=== PATIENT | female | born 1965 | race Caucasian/White ===

== ENCOUNTER → 2019-06-03 15:53 | Outpatient (BNVA) | payer MEDICAID, SELFPAY | PROVIDERS: Family Provider Nurse Practitioner; PCP Nurse Practitioner; Visit Provider Nurse Practitioner | DX: E11.9 Type 2 diabetes mellitus without complications (principal); E03.8 Other specified hypothyroidism; R82.998 Other abnormal findings in urine | CPT/HCPCS: 80053; 80061; 81000; 83036; 84443; 87077; 87086; 87186 ==

== ENCOUNTER → 2019-07-21 08:09 | Outpatient (BNVA) | payer MEDICAID, SELFPAY | PROVIDERS: Family Provider Nurse Practitioner; PCP Nurse Practitioner; Visit Provider Psychiatry & Neurology Psychiatry | DX: F31.9 Bipolar disorder, unspecified (principal) | CPT/HCPCS: 99214 ==

== ENCOUNTER → 2019-09-07 12:35 | Outpatient (BNVA) | payer MEDICAID, SELFPAY | PROVIDERS: Family Provider Nurse Practitioner; PCP Nurse Practitioner; Visit Provider Nurse Practitioner | DX: E03.8 Other specified hypothyroidism (principal); E11.21 Type 2 diabetes mellitus with diabetic nephropathy; M79.7 Fibromyalgia; E66.01 Morbid (severe) obesity due to excess calories; I25.10 Atherosclerotic heart disease of native coronary artery without angina pectoris; J30.1 Allergic rhinitis due to pollen; E78.5 Hyperlipidemia, unspecified; N18.3 Chronic kidney disease, stage 3 (moderate) | CPT/HCPCS: 80069; 82306; 82310; 82570; 83036; 83970; 84156; 85025 ==

== ENCOUNTER 2019-11-14 21:30 | Emergency (ER) | payer MEDICAID, SELFPAY ==
[2019-11-14 21:36] VITALS: BP 142/83; PULSE 80; RESP 18; TEMP 36.2; O2SAT 96; BMI 48.0
--- NOTE | 2019-11-14 22:22 | W.ED.GENADLT ---
HPI - General Adult General: Chief complaint: General Medical Stated complaint: sinus issue Time Seen by Provider: 11/14/19 22:19 History of Present Illness: HPI narrative: Patient complains about sinus pain that started yesterday would like some antibiotics has history of sinusitis. MD complaint: Sinus pain Onset (ago): day(s) Severity scale (1-10): 2 Quality: aching Pain Consistency: constant Associated symptoms: Deny chest pain, dyspnea, headache(s), nausea, rash or vomiting Review of Systems Const: Denies: fever(s), chills or body aches Eyes: Denies: change in vision or blurry vision ENMT: Reports: other (Sinus pain right maxillary area x1 day); Denies: throat pain or nasal congestion Card: Denies: chest pain or dyspnea on exertion Resp: Denies: dyspnea, productive cough or non-productive cough GI: Denies: abdominal pain, nausea or vomiting Musc: Denies: extremity pain Skin/Breast: Denies: rash Neuro: Denies: headache(s) Psych: Denies: anxiety or depression Reji/Lymph: Denies: easy bruising PFSH ED PFSH: Medical History (Updated 11/14/19 @ 22:22 by BELLA Denson) Adult onset hypothyroidism Allergic rhinitis due to pollen ASHD (arteriosclerotic heart disease) Bipolar 1 disorder Bipolar disorder Borderline personality disorder Chronic anxiety Controlled diabetes mellitus with hyperglycemia, with long-term current use of insulin Diabetes Fibromyalgia GERD (gastroesophageal reflux disease) History of abnormal cervical Pap smear (~2010) History of mammogram (~2015) Hyperlipidemia Morbid obesity Narcissistic personality disorder Post-traumatic stress disorder, chronic PTSD (post-traumatic stress disorder) Surgical History History of colon polyps History of colonoscopy (~10/2018) History of esophagogastroduodenoscopy (EGD) (~10/2018) History of tubal ligation (~2002) Family History Mother Hypertension Other Cancer Denies family history of Anesthesia complication Bleeding disorder Social History Smoking and tobacco status: former smoker Quit status (tobacco): has quit using tobacco Year quit tobacco: 2018 Second hand smoke exposure: No Smoking risk assessment/counseling performed?: No Alcohol intake: never Desire information about alcohol rehabilitation?: No Counseling given: No Desire information about substance/drug rehabilitation?: No Counseling given: No Adopted: No Caregiver/support person: Yes Lives independently: Yes Household members: family Housing: House Marital status: / Highest education level completed: High School Graduate service: No Current occupational status: disabled Current occupational exposures/hazards: No Pets and animals: Yes History of recent travel: No Sexually active: No Current gender identity: Female Padmini/[employer]ist: [employer] Special padmini needs: No Agree to transfusion: Yes Financial difficulty paying for basics: Decline to Answer Physical Exam Const: COMMON NORMALS: no acute distress, average body habitus and patient oriented x3 HENMT: COMMON NORMALS: normocephalic HEAD & SCALP: normal to inspection and normocephalic FACE & SINUS: other (Tenderness right maxillary frontal and ethmoid sinus area no swelling noted) Eye: COMMON NORMALS: conjunctivae normal GENERAL EYE: appearance normal, both eyes and all related structures CONJUNCTIVA: Yes conjunctivae normal Neck/C-Spine: COMMON NORMALS: no JVD Chest: COMMONS NORMALS: normal inspection of the chest Resp: COMMON NORMALS: normal respiratory effort and clear to auscultation bilaterally AUSCULTATION: clear to auscultation bilaterally Cardio: COMMON NORMALS: no JVD, regular rate and regular rhythm RATE: regular rate RHYTHM: regular rhythm GI: COMMON NORMALS: Normal to inspection, nondistended, normoactive bowel sounds present Extremity: COMMON NORMALS: normal to inspection and full ROM Neuro: COMMON NORMALS: patient oriented x3 Course Vital Signs: Vital signs: Vital Signs Temperature 97.2 F L 11/14/19 21:36 Pulse Rate 80 11/14/19 21:36 Respiratory Rate 18 11/14/19 21:36 Blood Pressure 142/83 11/14/19 21:36 Pulse Oximetry 96 11/14/19 21:36 Discharge Plan Discharge Patient Disposition: Home Clinical Impression: Sinus complaint Condition: Stable Prescriptions: New Cipro 500 mg tablet 500 mg PO BID Qty: 14 RF: 0 No Action amitriptyline 50 mg tablet 50 mg PO .qhs Qty: 30 RF: 5 duloxetine [Cymbalta] 60 mg capsule,delayed release(DR/EC) 120 mg PO DAILY Qty: 60 RF: 5 lithium carbonate 450 mg tablet extended release 450 mg PO .qhs Qty: 30 RF: 5 lithium carbonate 300 mg tablet extended release 300 mg PO .qhs Qty: 30 RF: 5 cholecalciferol (vitamin D3) 1,250 mcg (50,000 unit) capsule 50,000 unit PO .Monthly Qty: 1 RF: 1 folic acid 1 mg tablet 1 mg PO DAILY Qty: 30 RF: 2 furosemide [Lasix] 20 mg tablet 20 mg PO .every other day Qty: 30 RF: 2 glipizide 5 mg tablet extended release 24hr 5 mg PO DAILY Qty: 30 RF: 2 Toujeo Max U-300 SoloStar 300 unit/mL (3 mL) insulin pen 85 unit SUBCUT DAILY Qty: 6 RF: 2 levothyroxine [Synthroid] 50 mcg tablet 50 mcg PO DAILY Qty: 30 RF: 2 magnesium oxide 400 mg (241.3 mg magnesium) tablet 400 mg PO BID Qty: 60 RF: 2 montelukast [Singulair] 10 mg tablet 10 mg PO DAILY Qty: 30 RF: 2 rosuvastatin [Crestor] 10 mg tablet 10 mg PO DAILY Qty: 30 RF: 2 tizanidine 4 mg tablet 4 mg PO TID PRN (Reason: muscle spasticity) Qty: 90 RF: 2 tramadol 50 mg tablet 50 mg PO Q6H PRN (Reason: pain) Qty: 120 RF: 2 nystatin 100,000 unit/gram cream 1 applic TOPICAL BID PRNRF: 0 nitroglycerin [Nitrostat] 0.4 mg tablet, sublingual 0.4 mg SUBLINGUAL Q5M PRNRF: 0 albuterol sulfate [Ventolin HFA] 90 mcg/actuation HFA aerosol inhaler 2 puff INHALATION Q6H PRNRF: 0 cholecalciferol (vitamin D3) 10,000 unit capsule 10,000 unit PO ONCE RF: 0 omega-3 fatty acids [Fish Oil Concentrate] 1,000 mg capsule 1,000 mg PO BID RF: 0 aspirin 325 mg tablet 325 mg PO ONCE RF: 0 coenzyme Q10 [Co Q-10] 400 mg capsule 400 mg PO ONCE RF: 0 chromium picolinate 200 mcg tablet 200 mcg PO ONCE RF: 0 calcium citrate 250 mg calcium tablet 250 mg PO ONCE RF: 0 diphenhydramine HCl [Benadryl] 25 mg capsule 25 mg PO ONCE PRNRF: 0 guaifenesin [Mucinex] 600 mg tablet extended release 12hr 600 mg PO BID RF: 0 lysine [L-Lysine] 500 mg tablet 500 mg PO ONCE PRNRF: 0 alprazolam [Xanax] 0.25 mg tablet 0.25 mg PO QID Qty: 120 RF: 5 isosorbide mononitrate 120 mg tablet extended release 24 hr 120 mg PO QAM 90 Days Qty: 90 RF: 3 propranolol 60 mg tablet 30 mg PO BID 90 Days Qty: 90 RF: 3 potassium chloride 10 mEq capsule, extended release 10 meq PO .every other day Qty: 30 RF: 2 Victoza 2-Tree 0.6 mg/0.1 mL (18 mg/3 mL) pen injector 1.8 mg SUBCUT Q24H Qty: 6 RF: 0 (DME) pen needle, diabetic 33 gauge x 5/32 needle See Rx Instructions .ROUTE .MEDSUPPLY Qty: 100 RF: 5 Discharge Orders: Discharge Order (Routine); Ordered 11/14/19 Ordered By: Claus Mendez Referrals: Jamin Egan, PROFESSOR [facility] [employer] [Primary Care Provider] - Discharge Diet: Usual diet Discharge Activity: Resume usual activity Patient Instructions: Sinusitis (ED) Activity Restrictions/Additional Instructions: Follow-up with medical provider as directed. Take medications as prescribed. Return to the ER or your medical provider if condition worsens. Please read and understand discharge instructions. If any questions ask please. Coding Level of Care Code ED [employer] Exam Comprehensive
[2019-11-14] MEDS: ciprofloxacin 500 mg Tablet PO (22:33)
[2019-11-14 22:34] VITALS: PULSE 80; RESP 18; O2SAT 99
== END 2019-11-14 22:36 | disposition home or self-care (01) ==
PROVIDERS: Emergency Provider Nurse Practitioner Family; PCP Nurse Practitioner
DX: J32.9 Chronic sinusitis, unspecified (principal); Z79.84 Long term (current) use of oral hypoglycemic drugs; Z79.82 Long term (current) use of aspirin; E11.9 Type 2 diabetes mellitus without complications; E78.5 Hyperlipidemia, unspecified; Z87.891 Personal history of nicotine dependence
CPT/HCPCS: 12345; 99282

== ENCOUNTER → 2019-12-07 14:42 | Outpatient (BNVA) | payer MEDICAID, SELFPAY | PROVIDERS: Family Provider Nurse Practitioner; PCP Nurse Practitioner; Visit Provider Nurse Practitioner | DX: E11.65 Type 2 diabetes mellitus with hyperglycemia (principal); Z79.4 Long term (current) use of insulin; E03.8 Other specified hypothyroidism; F31.9 Bipolar disorder, unspecified; E55.9 Vitamin D deficiency, unspecified | CPT/HCPCS: 80053; 80178; 82306; 83036; 84443 ==

== ENCOUNTER → 2020-03-07 14:12 | Outpatient (BNVA) | payer MEDICAID, SELFPAY ==
[2019-12-22 11:14] VITALS: BP 132/88; BMI 50.8
== END ==
PROVIDERS: Family Provider Nurse Practitioner; PCP Nurse Practitioner; Visit Provider Nurse Practitioner
DX: I25.10 Atherosclerotic heart disease of native coronary artery without angina pectoris (principal); E11.65 Type 2 diabetes mellitus with hyperglycemia; Z79.4 Long term (current) use of insulin; M79.7 Fibromyalgia; E66.01 Morbid (severe) obesity due to excess calories; E03.8 Other specified hypothyroidism; J30.1 Allergic rhinitis due to pollen; B37.9 Candidiasis, unspecified; E78.5 Hyperlipidemia, unspecified; E55.9 Vitamin D deficiency, unspecified
CPT/HCPCS: 80053; 80061; 82306; 83036

== ENCOUNTER → 2020-06-05 14:26 | Outpatient (BNVA) | payer MEDICAID, SELFPAY ==
[2019-12-22 11:14] VITALS: BP 132/88; BMI 50.8
== END ==
PROVIDERS: Family Provider Nurse Practitioner; PCP Nurse Practitioner; Visit Provider Nurse Practitioner
DX: E11.65 Type 2 diabetes mellitus with hyperglycemia (principal); Z79.4 Long term (current) use of insulin; E03.8 Other specified hypothyroidism; E55.9 Vitamin D deficiency, unspecified; E78.49 Other hyperlipidemia; E78.5 Hyperlipidemia, unspecified; M79.7 Fibromyalgia; E66.01 Morbid (severe) obesity due to excess calories; I25.10 Atherosclerotic heart disease of native coronary artery without angina pectoris; J30.1 Allergic rhinitis due to pollen; B37.9 Candidiasis, unspecified
CPT/HCPCS: 80053; 81003; 82306; 83036; 84443; 87077; 87086; 87184

== ENCOUNTER → 2020-08-03 15:41 | Outpatient (BNVA) | payer MEDICAID, SELFPAY ==
[2020-07-06 14:36] VITALS: BP 132/82; BMI 53.5
== END ==
PROVIDERS: Family Provider Nurse Practitioner; PCP Nurse Practitioner; Visit Provider Nurse Practitioner
DX: E11.65 Type 2 diabetes mellitus with hyperglycemia (principal); R35.0 Frequency of micturition; E66.01 Morbid (severe) obesity due to excess calories; M79.7 Fibromyalgia; Z79.4 Long term (current) use of insulin
CPT/HCPCS: 81003; 87077; 87086; 87184

== ENCOUNTER → 2020-08-15 14:39 | Outpatient (BNVA) | payer MEDICAID, SELFPAY ==
[2020-07-06 14:36] VITALS: BP 132/82; BMI 53.5
== END ==
PROVIDERS: Family Provider Nurse Practitioner; PCP Nurse Practitioner; Visit Provider Nurse Practitioner Psychiatric/Mental Health
DX: F31.9 Bipolar disorder, unspecified (principal); F43.12 Post-traumatic stress disorder, chronic
CPT/HCPCS: 99215

== ENCOUNTER → 2020-09-08 13:56 | Outpatient (BNVA) | payer MEDICAID, SELFPAY ==
[2020-07-06 14:36] VITALS: BP 132/82; BMI 53.5
== END ==
PROVIDERS: Family Provider Nurse Practitioner; PCP Nurse Practitioner; Visit Provider Psychiatry & Neurology Psychiatry
DX: F31.9 Bipolar disorder, unspecified (principal); F43.12 Post-traumatic stress disorder, chronic; W19.XXXA Unspecified fall, initial encounter; Z79.899 Other long term (current) drug therapy; E11.649 Type 2 diabetes mellitus with hypoglycemia without coma
CPT/HCPCS: 99215

== ENCOUNTER → 2020-12-01 12:51 | Outpatient (BNVA) | payer MEDICAID, SELFPAY ==
[2020-07-06 14:36] VITALS: BP 132/82; BMI 53.5
== END ==
PROVIDERS: Family Provider Nurse Practitioner; PCP Nurse Practitioner; Visit Provider Psychiatry & Neurology Psychiatry
DX: F31.9 Bipolar disorder, unspecified (principal); F43.12 Post-traumatic stress disorder, chronic
CPT/HCPCS: 99215

== ENCOUNTER → 2021-01-04 11:40 | Outpatient (BNVA) | payer OTHER, SELFPAY ==
[2020-07-06 14:36] VITALS: BP 132/82; BMI 53.5
== END ==
PROVIDERS: Family Provider Nurse Practitioner; PCP Nurse Practitioner; Visit Provider Psychiatry & Neurology Neurology
DX: F31.9 Bipolar disorder, unspecified (principal)
CPT/HCPCS: 80061; 80178; 83036; 83721

== ENCOUNTER 2021-02-12 18:30 | Emergency (ER) | payer MEDICAID, SELFPAY ==
[2021-01-08 14:46] VITALS: BP 146/97; BMI 51.1
[2021-02-12 18:37] VITALS: BP 127/77; PULSE 76; RESP 20; TEMP 36.9; O2SAT 96; BMI 50.2
--- NOTE | 2021-02-12 19:23 | XRR_ITS ---
PROCEDURE INFORMATION: Exam: XR Chest Exam date and time: 02/12/2021 7:23 PM Age: 55 years old Clinical indication: Shortness of breath; Additional info: Fall TECHNIQUE: Imaging protocol: XR of the chest. Views: 1 view. COMPARISON: CR Abdomen Series Acute 20108 11/29/2015 7:50 AM FINDINGS: Lungs: No consolidation. Pleural spaces: No pleural effusion. No pneumothorax. Heart/Mediastinum: No cardiomegaly. Bones/joints: No acute fracture demonstrated. Mild degenerative spine changes are noted. XR/XR chest 1V portable [id number] IMPRESSION: 1. No acute abnormality demonstrated. 2. There is no interval change from the prior examination. Radiation Dose CTDIVOL = (mGy): DLP = (mGy-cm)
--- NOTE | 2021-02-12 19:23 | CTR_ITS ---
PROCEDURE INFORMATION: Exam: CT Head Without Contrast Exam date and time: 02/12/2021 7:23 PM Age: 55 years old Clinical indication: Walking, difficulty and other: Weakness TECHNIQUE: Imaging protocol: Computed tomography of the head without contrast. Radiation optimization: All CT scans at this facility use at least one of these dose optimization techniques: automated exposure control; mA and/or kV adjustment per patient size (includes targeted exams where dose is matched to clinical indication); or iterative reconstruction. COMPARISON: No relevant prior studies available. RADIATION DOSE METRICS: Total DLP (mGy-cm): 977.33 FINDINGS: Brain: Unremarkable. No hemorrhage. No significant white matter disease. No edema. 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 Cerebral ventricles: No ventriculomegaly. Paranasal sinuses: Postop changes of the bilateral maxillary sinuses. Mild mucoperiosteal thickening in the right maxillary sinus. Mastoid air cells: Unremarkable as visualized. No mastoid effusion. Bones/joints: Unremarkable. No acute fracture. Soft tissues: 10 mm partially calcified right frontal scalp cyst or nodule. Similar 1.8 cm nodule in the right occipital scalp. CT/CT head wo con* [id number] IMPRESSION: No acute intracranial abnormality demonstrated. Radiation Dose CTDIVOL = (mGy): DLP = 977.33 (mGy-cm)
--- NOTE | 2021-02-12 21:20 | W.ED.WEAKNES ---
HPI - Weakness General: Chief complaint: Weakness Stated complaint: Fallen (3) times\Cant feel rt foot or lips Time Seen by Provider: 02/12/21 20:47 Source: patient Mode of arrival: ambulatory Limitations: no limitations History of Present Illness: HPI Narrative: 55-year-old female who states that she has got chronic numbness in her extremities left greater than right states she does have frequent falls but today she has had increased muscle weakness and spasm and falls. States she had 3 falls today states she has had increased tingling in her extremities. She states that time she walks with a cane but states she was not using her cane when she fell. She denies any back pain or headache. States she is also had some slight dyspnea is also chronic in nature. She denies any pain from her falls. Associated symptoms: Denies chest pain, chills, dysuria, easy bruising, fever(s), nausea or vomiting Review of Systems Const: Denies: fever(s), chills, body aches or change in appetite Eyes: Denies: blurry vision or eye discomfort ENMT: Denies: throat pain or dental pain Card: Denies: chest pain Resp: Reports: dyspnea GI: Denies: abdominal pain, nausea, vomiting or diarrhea : Denies: dysuria Musc: Reports: muscle weakness Skin/Breast: Denies: rash Neuro: Reports: numbness in extremities Psych: Denies: depression Reji/Lymph: Denies: easy bruising All/Imm: Denies: urticaria PFSH ED PFSH: Medical History Adult onset hypothyroidism Allergic rhinitis due to pollen ASHD (arteriosclerotic heart disease) Bipolar 1 disorder Bipolar disorder Borderline personality disorder Chronic anxiety Controlled diabetes mellitus with hyperglycemia, with long-term current use of insulin Diabetes Fibromyalgia GERD (gastroesophageal reflux disease) History of abnormal cervical Pap smear (~2010) History of mammogram (~2015) Hyperlipidemia Morbid obesity Narcissistic personality disorder Post-traumatic stress disorder, chronic PTSD (post-traumatic stress disorder) Surgical History History of colon polyps History of colonoscopy (~10/2018) History of esophagogastroduodenoscopy (EGD) (~10/2018) History of tubal ligation (~2002) Family History Mother Hypertension Other Borderline personality disorder Cancer Denies family history of Anesthesia complication Bleeding disorder Social History Smoking and tobacco status: former smoker Quit status (tobacco): has quit using tobacco Year quit tobacco: 2017 Second hand smoke exposure: No Smoking risk assessment/counseling performed?: No Alcohol intake: former Year of sobriety/quit date alcohol: 1990 Desire information about alcohol rehabilitation?: No Counseling given: No Desire information about substance/drug rehabilitation?: No Counseling given: No Adopted: No Caregiver/support person: Yes (Nurse on Wednesdays, aide comes in for 3 hours 4 days a week) Lives independently: Yes Household members: family and none Housing: House Marital status: / Marital status details: in 2010 Number of children: 3 Number of grandchildren: 8 Highest education level completed: Associate Degree: Academic Program Education level details: ADN service: No Current occupational status: disabled Current occupational exposures/hazards: No Pets and animals: Yes Pets & animals: cat(s) History of recent travel: No Leisure activites: music, reading and other Leisure activities details: watch TV, sew, take care of house plants Sexually active: No Current gender identity: Female Padmini/Tenriism: Denominational Special padmini needs: No Agree to transfusion: Yes Financial difficulty paying for basics: Not Very Hard Female Reproductive History: Date of last menstrual period: 01/01/21 Para: 3 Spontaneous abortions: Yes (1) Physical Exam Const: COMMON NORMALS: no acute distress, patient oriented x3 and healthy appearing HENMT: COMMON NORMALS: normocephalic and atraumatic HEAD & SCALP: normocephalic and atraumatic Eye: COMMON NORMALS: Equal, round and reactive pupils present and EOMs intact bilaterally PUPIL: Yes Equal, round and reactive pupils present Neck/C-Spine: COMMON NORMALS: full ROM and supple Chest: COMMONS NORMALS: normal inspection of the chest and normal palpation of entire chest wall Resp: COMMON NORMALS: normal respiratory effort, No retractions, No use of accessory muscles and clear to auscultation bilaterally AUSCULTATION: clear to auscultation bilaterally Cardio: COMMON NORMALS: regular rate, regular rhythm and No murmurs present (Cardio) RATE: regular rate RHYTHM: regular rhythm GI: COMMON NORMALS: Normal to inspection, nondistended, normoactive bowel sounds present, Soft to palpation, non-tender and no masses PALPATION: Yes Soft to palpation Extremity: COMMON NORMALS: normal to inspection and full ROM Neuro: COMMON NORMALS: patient oriented x3, moves all extremities and no focal motor deficits Psych: COMMON NORMALS: mental status grossly normal, Normal thought process present and cooperative THOUGHT PROCESS: Normal thought process present Skin: COMMON NORMALS: no rashes or lesions noted and no wounds GENERAL SKIN EXAM: no rashes or lesions noted Course Vital Signs: Vital signs: Vital Signs Temperature 98.5 F 02/12/21 18:37 Pulse Rate 80 02/13/21 00:44 Respiratory Rate 23 H 02/13/21 00:44 Blood Pressure 130/74 02/13/21 00:44 Pulse Oximetry 95 02/13/21 00:44 MDM - Weakness MDM Narrative: Medical decision making narrative: Patient presents here with weakness and multiple falls but is chronic in nature she uses a cane at times and informed her she is probably should use a cane or walker at all times she does have a urinary tract infection other work-up is all normal she is able ambulate here and is stable for discharge she is to follow-up PCP and return if worsening. Lab Data: Labs: Lab Results 02/12/21 02/12/21 02/12/21 21:23 21:30 22:50 WBC 9.8 10^3/uL 10^3/ uL (4.0-10.0) RBC 4.58 10^6/uL 10^6 /uL (4.1-5.3) Hgb 13.9 g/dL g/dL (11.5-15.3) Hct 41.0 % % (37.0-47.0) MCV 89.5 fl fl (81-99) MCH 30.3 pg pg (28.0-34.0) MCHC 33.9 g/dL g/dL (30.0-36.0) RDW 12.8 % % (12.1-15.1) Plt Count 215 10^3/cmm 10^3 /cmm (130-400) MPV 10.2 fL fL (7.4-10.4) Neut % (Auto) 76.0 % % Lymph % (Auto) 13.8 % % [place] % (Auto) 6.8 % % Eos % (Auto) 2.5 % % Baso % (Auto) 0.6 % % Neut # (Auto) 7.45 10^3/uL 10^3 /uL (1.8-7.7) Lymph # (Auto) 1.4 10^3/uL 10^3/ uL (0.8-4.8) [place] # (Auto) 0.7 10^3/uL 10^3/ uL (0.2-0.9) Eos # (Auto) 0.3 10^3/uL 10^3/ uL (0.0-0.8) Baso # (Auto) 0.1 10^3/uL 10^3/ uL (0.0-0.1) Nucleated RBC % (a uto) 0 % % Nucleated RBCs # 0.0 /100WBC /100W BC PT INR Sodium Potassium Chloride Carbon Dioxide Anion Gap BUN Creatinine GFR Calculation Glucose POC Glucose 359 mg/dL H mg/dL (70-110) Calculated Osmolal ity Calcium Total Bilirubin AST ALT Alkaline Phosphata se Troponin T Baselin e Troponin T 120 Min [place] Troponin T Total Protein Albumin Globulin Urine Color Yellow (Yellow) Urine Appearance Cloudy (CLEAR) Urine pH 5 (5-7) Ur Specific Gravit y 1.005 (1.005-1.030) Urine Protein Neg (Negative) Urine Glucose (UA) 4+ H (Normal) Urine Ketones Negative (Negative) Urine Blood 2+ H (Negative) Urine Nitrate Negative (Negative) Urine Bilirubin Neg (Negative) Urine Urobilinogen Norm mg/dL mg/dL (Negative) Ur Leukocyte Shelley ase 2+ H (Negative) Urine RBC 5-10 /hpf H /hpf (0-2) Urine WBC Too numerous to c nt /hpf H /hpf (0-5) Ur Squamous Epith Cells 5-10 /hpf H /hpf (0-5) Amorphous Sediment Not Reportable Urine Bacteria 3+ /hpf H /hpf (NONE) 02/12/21 02/12/21 02/12/21 22:50 22:50 22:50 WBC RBC Hgb Hct MCV MCH MCHC RDW Plt Count MPV Neut % (Auto) Lymph % (Auto) [place] % (Auto) Eos % (Auto) Baso % (Auto) Neut # (Auto) Lymph # (Auto) [place] # (Auto) Eos # (Auto) Baso # (Auto) Nucleated RBC % (a uto) Nucleated RBCs # PT 14.30 SECONDS SEC ONDS (12.1-14.9) INR 1.07 (0.8-1.2) Sodium 129 mmol/L L mmol /L (136-145) Potassium 4.2 mmol/L mmol/L (3.5-5.1) Chloride 94 mmol/L L mmol/ L (98-107) Carbon Dioxide 23 mmol/L mmol/L (22-29) Anion Gap 16.2 (5-19) BUN 16 mg/dL mg/dL (6-20) Creatinine 1.6 mg/dL H mg/dL (0.5-0.9) GFR Calculation 33.6 mL/min L mL/ min (90-130) Glucose 325 mg/dL H mg/dL (65-115) POC Glucose Calculated Osmolal ity 282 mOsm/kg L mOs m/kg (285-295) Calcium 8.7 mg/dL mg/dL (8.5-10.5) Total Bilirubin 0.5 mg/dL mg/dL (0.15-1.2) AST 15 U/L U/L (0-32) ALT 22 U/L U/L (0-33) Alkaline Phosphata se 83 IU/L IU/L (35-105) Troponin T Baselin e 26 ng/L H ng/L (0-10) Troponin T 120 Min [place] Troponin T Total Protein 6.8 g/dL g/dL (6.6-8.7) Albumin 3.3 g/dL L g/dL (3.5-5.2) Globulin 3.5 g/dL g/dL (1.3-4.6) Urine Color Urine Appearance Urine pH Ur Specific Gravit y Urine Protein Urine Glucose (UA) Urine Ketones Urine Blood Urine Nitrate Urine Bilirubin Urine Urobilinogen Ur Leukocyte Shelley ase Urine RBC Urine WBC Ur Squamous Epith Cells Amorphous Sediment Urine Bacteria 02/13/21 02/13/21 01:00 02:13 WBC RBC Hgb Hct MCV MCH MCHC RDW Plt Count MPV Neut % (Auto) Lymph % (Auto) [place] % (Auto) Eos % (Auto) Baso % (Auto) Neut # (Auto) Lymph # (Auto) [place] # (Auto) Eos # (Auto) Baso # (Auto) Nucleated RBC % (a uto) Nucleated RBCs # PT INR Sodium Potassium Chloride Carbon Dioxide Anion Gap BUN Creatinine GFR Calculation Glucose POC Glucose 244 mg/dL H mg/dL (70-110) Calculated Osmolal ity Calcium Total Bilirubin AST ALT Alkaline Phosphata se Troponin T Baselin e Troponin T 120 Min [place] 26.29 ng/L H ng/L (0-10) Delta Troponin T 0.29 ABS# ABS# (0-10) Total Protein Albumin Globulin Urine Color Urine Appearance Urine pH Ur Specific Gravit y Urine Protein Urine Glucose (UA) Urine Ketones Urine Blood Urine Nitrate Urine Bilirubin Urine Urobilinogen Ur Leukocyte Shelley ase Urine RBC Urine WBC Ur Squamous Epith Cells Amorphous Sediment Urine Bacteria Imaging Data^: CT Head: Attestation: I personally reviewed and interpreted this imaging study as follows: Radiologist's impression: [id number] [address] [address] Scan Report Signed Patient: Milena Carter Unit #: [id number] : 1965 Age/Sex: 55 / F ADM Date: 02/12/21 Loc: ER Room/Bed: Attending Dr: Ordering Provider/Ordering MD: Torri Stock MD Date of Service: 02/12/21 Procedure(s): CT head wo con* [id number] Accession Number(s): [id number] Report Number: [id number] PROCEDURE INFORMATION: Exam: CT Head Without Contrast Exam date and time: 02/12/2021 7:23 PM Age: 55 years old Clinical indication: Walking, difficulty and other: Weakness TECHNIQUE: Imaging protocol: Computed tomography of the head without contrast. Radiation optimization: All CT scans at this facility use at least one of these dose optimization techniques: automated exposure control; mA and/or kV adjustment per patient size (includes targeted exams where dose is matched to clinical indication); or iterative reconstruction. COMPARISON: No relevant prior studies available. RADIATION DOSE METRICS: Total DLP (mGy-cm): 977.33 FINDINGS: Brain: Unremarkable. No hemorrhage. No significant white matter disease. No edema. 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 Cerebral ventricles: No ventriculomegaly. Paranasal sinuses: Postop changes of the bilateral maxillary sinuses. Mild mucoperiosteal thickening in the right maxillary sinus. Mastoid air cells: Unremarkable as visualized. No mastoid effusion. Bones/joints: Unremarkable. No acute fracture. Soft tissues: 10 mm partially calcified right frontal scalp cyst or nodule. Similar 1.8 cm nodule in the right occipital scalp. CT/CT head wo con* [id number] IMPRESSION: No acute intracranial abnormality demonstrated. Radiation Dose CTDIVOL = (mGy): DLP = 977.33 (mGy-cm) Dictated By: Kam Jones MD Signed By: Kam Jones MD Signed Date/Time: 02/12/212131 DD/ 22 CXR: Attestation: I personally reviewed and interpreted this imaging study as follows: Radiologist's impression: no acute abnormality EKG Data^: EKG 1: Attestation: I personally reviewed and interpreted this EKG as follows: EKG interpretation date: 02/12/21 EKG interpretation time: 22:05 Interpretation: nsr hr [address] or t wave abnormalities qrs 107 qtc 478 EKG 2: Attestation: I personally reviewed and interpreted this EKG as follows: EKG interpretation date: 02/13/21 EKG interpretation time: 00:34 Interpretation: nsr hr [address] or t wave abnormalities qrs 89 qtc 456 Discharge Plan Discharge Patient Disposition: Home Clinical Impression: Fall, Acute cystitis, Weakness Condition: Stable Prescriptions: New cephalexin 500 mg capsule 500 mg PO TID 7 Days Qty: 21 RF: 0 No Action alprazolam [Xanax] 0.25 mg tablet 0.25 mg PO QID PRN (Reason: anxiety) Qty: 120 RF: 2 cholecalciferol (vitamin D3) 1,250 mcg (50,000 unit) capsule 50,000 unit PO .Monthly Qty: 1 RF: 2 furosemide [Lasix] 20 mg tablet 20 mg PO .every other day Qty: 30 RF: 2 glipizide 5 mg tablet extended release 24hr 5 mg PO DAILY Qty: 30 RF: 2 Toujeo Max U-300 SoloStar 300 unit/mL (3 mL) insulin pen 85 unit SUBCUT DAILY Qty: 6 RF: 2 levothyroxine [Synthroid] 50 mcg tablet 50 mcg PO DAILY Qty: 30 RF: 2 magnesium oxide 400 mg (241.3 mg magnesium) tablet 400 mg PO BID Qty: 60 RF: 2 montelukast [Singulair] 10 mg tablet 10 mg PO DAILY Qty: 30 RF: 2 potassium chloride 10 mEq capsule, extended release 10 meq PO .every other day Qty: 30 RF: 2 rosuvastatin [Crestor] 10 mg tablet 10 mg PO DAILY Qty: 30 RF: 2 tizanidine 4 mg tablet 4 mg PO TID PRN (Reason: muscle spasticity) Qty: 90 RF: 2 tramadol 50 mg tablet 50 mg PO Q6H PRN (Reason: pain) Qty: 120 RF: 2 Victoza 3-Tree 0.6 mg/0.1 mL (18 mg/3 mL) pen injector 1.8 mg SUBCUT DAILY Qty: 3 RF: 2 albuterol sulfate [Ventolin HFA] 90 mcg/actuation HFA aerosol inhaler 2 puff INHALATION Q6H PRNRF: 0 cholecalciferol (vitamin D3) 10,000 unit capsule 10,000 unit PO ONCE RF: 0 omega-3 fatty acids [Fish Oil Concentrate] 1,000 mg capsule 1,000 mg PO BID RF: 0 aspirin 325 mg tablet 325 mg PO ONCE RF: 0 coenzyme Q10 [Co Q-10] 400 mg capsule 400 mg PO ONCE RF: 0 chromium picolinate 200 mcg tablet 200 mcg PO ONCE RF: 0 calcium citrate 250 mg calcium tablet 250 mg PO ONCE RF: 0 diphenhydramine HCl [Benadryl] 25 mg capsule 25 mg PO ONCE PRNRF: 0 guaifenesin [Mucinex] 600 mg tablet extended release 12hr 600 mg PO BID RF: 0 nitroglycerin [Nitrostat] 0.4 mg tablet, sublingual 0.4 mg SUBLINGUAL Q5M PRN (Reason: chest pain) Qty: 25 RF: 5 biotin 1 mg capsule 1 mg PO DAILY RF: 0 multivitamin Tablet 0.5 tab PO BID RF: 0 mecobalamin (vitamin B12) 1,000 mcg tablet,disintegrating 500 mcg sublingual DAILY RF: 0 pen needle, diabetic [TechLITE Pen Needle] 32 gauge x 5/32 needle See Rx Instructions .ROUTE .COMPLEX Qty: 100 RF: 5 isosorbide mononitrate 120 mg tablet extended release 24 hr 120 mg PO QAM Qty: 90 RF: 3 propranolol 60 mg tablet 30 mg PO BID 90 Days Qty: 90 RF: 3 amitriptyline 50 mg tablet 50 mg PO .qhs Qty: 30 RF: 2 duloxetine [Cymbalta] 60 mg capsule,delayed release(DR/EC) 120 mg PO DAILY Qty: 60 RF: 2 lithium carbonate 450 mg tablet extended release 450 mg PO .qhs Qty: 30 RF: 2 lithium carbonate 300 mg tablet extended release 300 mg PO .qhs Qty: 30 RF: 2 folic acid 1 mg tablet 1 mg PO DAILY Qty: 30 RF: 2 Discharge Orders: Discharge ED (Routine); Ordered 02/13/21 Ordered By: Torri Stock Referrals: Jamin Egan, ARBORIST REPRESENTATIVE-C [Primary Care Provider] - 1-3 days Discharge Diet: Advance as tolerated Discharge Activity: Resume usual activity Patient Instructions: Urinary Tract Infection in Women (DC), Paresthesia (ED) Coding Level of Care Code ED Newsroom Intern for Chg Fwd Exam Comprehensive
--- NOTE | 2021-02-12 21:23 | ECG_ITS ---
[facility] Test Date: 2021-02-12 Pat Name: Milena Carter Department: Room: Gender: Female Barrel Drum Cutter: : 1965 Requested By: Torri Stock Order Number: [id number] Petar MD: Richi Alonso M.D. Measurements Intervals [place] Rate: 77 P: -2 FL: 170 QRS: 22 QRSD: 107 T: 55 QT: 446 QTc: 507 Interpretive Statements SINUS RHYTHM LOW QRS VOLTAGE IN PRECORDIAL LEADS [QRS DEFLECTION < 1.0 mV IN CHEST LEADS] MODERATE INTRAVENTRICULAR CONDUCTION DELAY [105+ ms QRS DURATION, 80+ ms Q/S IN V1/V2, NO Q AND 60+ ms R IN I/aVL/V5/V6] PROLONGED QT INTERVAL Compared to ECG 11/13/2018 14:06:44 Intraventricular conduction delay now present Prolonged QT interval now present Left-axis deviation no longer present Myocardial infarct finding no longer present Electronically Signed On 02-14-2021 17:48:45 COSMETIC ASSEMBLER by Richi Alonso M.D. [id number]
[2021-02-12 21:34] VITALS: BP 118/62; PULSE 80; RESP 23; O2SAT 97
[2021-02-12 21:38] LABS: Glucose Point of Care 359 mg/dL (70-110)
[2021-02-12 21:54] LABS: Bilirubin Urine Neg (Negative); Blood Urine 2+ (Negative); Glucose Urine UA 4+ (Normal); Ketones Urine Negative (Negative); Leukocyte Esterase Urine 2+ (Negative); Nitrate Urine Negative (Negative); Protein Urine Neg (Negative); Specific Gravity, Urine 1.005 (1.005-1.030); Urine Appearance Cloudy (CLEAR); Urine Color Yellow (Yellow); Urobilinogen Urine Norm (Negative); pH Urine 5 (5-7)
[2021-02-12 21:55] LABS: Add Urine Culture? Yes; Add Urine Microscopic? YES; Bacteria Urine 3+ /hpf; WBC Urine TOO NUMEROUS TO CNT /hpf (0-5)
[2021-02-12 23:18] LABS: Basophils # 0.1 10^3/uL (0.0-0.1); Basophils % 0.6 %; Eosinophils # 0.3 10^3/uL (0.0-0.8); Eosinophils % 2.5 %; Hemoglobin 13.9 g/dL (11.5-15.3); Lymphocytes # 1.4 10^3/uL (0.8-4.8); Lymphocytes % 13.8 %; Mean Corpuscular HGB Conc 33.9 g/dL (30.0-36.0); Mean Corpuscular Hemoglobin 30.3 pg (28.0-34.0); Mean Corpuscular Volume 89.5 fl (81-99); Mean Platelet Volume 10.2 fL (7.4-10.4); Monocytes # 0.7 10^3/uL (0.2-0.9); Monocytes % 6.8 %; Neutrophils # 7.45 10^3/uL (1.8-7.7); Nucleated Red Blood Cells % 0 %; Platelet Count 215 10^3/cmm (130-400); Red Blood Count 4.58 10^6/uL (4.1-5.3); Red Cell Distribution Width 12.8 % (12.1-15.1); White Blood Count 9.8 10^3/uL (4.0-10.0)
[2021-02-12 23:36] LABS: INR 1.07 (0.8-1.2)
[2021-02-12 23:37] LABS: Troponin(5th) Baseline 26 ng/L (0-10)
[2021-02-12] MEDS: cefTRIAXone 1,000 MG in sodium chloride 0.9% (plus) 50 ML 100 MG IV (23:37)
[2021-02-12 23:39] LABS: Alanine Aminotransferase 22 U/L (0-33); Albumin Level 3.3 g/dL (3.5-5.2); Alkaline Phosphatase 83 IU/L (35-105); Anion Gap 16.2 (5-19); Aspartate Amino Transferase 15 U/L (0-32); Blood Urea Nitrogen 16 mg/dL (6-20); Calcium 8.7 mg/dL (8.5-10.5); Carbon Dioxide 23 mmol/L (22-29); Chloride 94 mmol/L (98-107); Globulin 3.5 g/dL (1.3-4.6); Glomerular Filtration Rate 33.6 mL/min (90-130); Glucose 325 mg/dL (65-115); Osmolality Calculated 282 mOsm/kg (285-295); Potassium 4.2 mmol/L (3.5-5.1); Sodium 129 mmol/L (136-145); Total Bilirubin 0.5 mg/dL (0.15-1.2); Total Protein 6.8 g/dL (6.6-8.7)
[2021-02-12] MEDS: insulin regular-human 100 units/1 mL 8 UNIT IVP (23:39)
[2021-02-12] MEDS: sodium chloride 0.9% 500 ML 999 ML IV (23:39)
[2021-02-13 00:44] VITALS: BP 130/74; PULSE 80; RESP 23; O2SAT 95
--- NOTE | 2021-02-13 01:23 | ECG_ITS ---
[facility] Test Date: 2021-02-13 Pat Name: Milena Carter Department: Room: Gender: Female Car Sealer: : 1965 Requested By: Torri Stock Order Number: [id number] Petar MD: Richi Alonso M.D. Measurements Intervals [place] Rate: 75 P: IA: QRS: 7 QRSD: 89 T: 30 QT: 428 QTc: 478 Interpretive Statements SUPRAVENTRICULAR RHYTHM LOW QRS VOLTAGE IN PRECORDIAL LEADS [QRS DEFLECTION < 1.0 mV IN CHEST LEADS] SEPTAL MYOCARDIAL INFARCTION , OF INDETERMINATE AGE [40+ ms Q WAVE IN V1/V2] Compared to ECG 02/12/2021 22:05:55 Supraventricular rhythm now present Myocardial infarct finding now present Sinus rhythm no longer present Intraventricular conduction delay no longer present Prolonged QT interval no longer present Electronically Signed On 02-14-2021 17:47:39 PROOFREADER by Richi Alonso M.D. [id number]
[2021-02-13 01:29] LABS: Troponin 5 2HR 26.29 ng/L (0-10); Troponin 5 2HR Delta 0.29 ABS# (0-10)
[2021-02-13 02:17] LABS: Glucose Point of Care 244 mg/dL (70-110)
== END 2021-02-13 02:50 | disposition home or self-care (01) ==
PROVIDERS: Emergency Provider Emergency Medicine; PCP Nurse Practitioner
DX: N30.00 Acute cystitis without hematuria (principal); R53.1 Weakness; W18.30XA Fall on same level, unspecified, initial encounter
CPT/HCPCS: 36415; 36416; 70450; 71045; 80053; 81001; 82962; 84484; 85025; 85610; 87077; 87086; 87186; 93005; 96365; 96375; 99284; J0696; J1815; J7040

== ENCOUNTER → 2021-02-23 13:46 | Outpatient (BNVA) | payer MEDICAID, SELFPAY ==
[2021-01-08 14:46] VITALS: BP 146/97; BMI 51.1
== END ==
PROVIDERS: PCP Nurse Practitioner; Visit Provider Psychiatry & Neurology Psychiatry
DX: F31.9 Bipolar disorder, unspecified (principal); F43.12 Post-traumatic stress disorder, chronic
CPT/HCPCS: 99214

== ENCOUNTER → 2021-02-27 10:23 | Outpatient (BNVA) | payer MEDICAID, SELFPAY ==
[2021-01-08 14:46] VITALS: BP 146/97; BMI 51.1
== END ==
PROVIDERS: PCP Nurse Practitioner; Visit Provider Nurse Practitioner
DX: E11.65 Type 2 diabetes mellitus with hyperglycemia (principal); Z79.4 Long term (current) use of insulin; N39.0 Urinary tract infection, site not specified
CPT/HCPCS: 80053; 80061; 81000; 83036; 87077; 87086; 87184

== ENCOUNTER → 2021-06-27 11:06 | Outpatient (BNVA) | payer MEDICAID, SELFPAY ==
[2021-01-08 14:46] VITALS: BP 146/97; BMI 51.1
== END ==
PROVIDERS: PCP Nurse Practitioner; Visit Provider Nurse Practitioner
DX: E11.65 Type 2 diabetes mellitus with hyperglycemia (principal); Z79.4 Long term (current) use of insulin; E66.01 Morbid (severe) obesity due to excess calories; I25.10 Atherosclerotic heart disease of native coronary artery without angina pectoris; E03.8 Other specified hypothyroidism; M79.7 Fibromyalgia; J30.1 Allergic rhinitis due to pollen; E78.49 Other hyperlipidemia; E55.9 Vitamin D deficiency, unspecified
CPT/HCPCS: 80053; 80061; 81000; 82306; 83036; 83721; 84443

== ENCOUNTER → 2021-11-01 10:22 | Outpatient (BNVA) | payer MEDICAID, SELFPAY ==
[2021-01-08 14:46] VITALS: BP 146/97; BMI 51.1
== END ==
PROVIDERS: PCP Nurse Practitioner; Visit Provider Nurse Practitioner
DX: E03.8 Other specified hypothyroidism (principal); E11.65 Type 2 diabetes mellitus with hyperglycemia; F31.9 Bipolar disorder, unspecified; Z79.4 Long term (current) use of insulin; E55.9 Vitamin D deficiency, unspecified; N39.0 Urinary tract infection, site not specified
CPT/HCPCS: 80053; 80061; 80178; 81000; 82306; 83036; 84443; 87077; 87086; 87184

== ENCOUNTER → 2022-04-08 10:46 | Outpatient (BNVA) | payer MEDICAID, SELFPAY ==
[2021-01-08 14:46] VITALS: BP 146/97; BMI 51.1
== END ==
PROVIDERS: PCP Nurse Practitioner; Visit Provider Nurse Practitioner
DX: E55.9 Vitamin D deficiency, unspecified (principal); E11.65 Type 2 diabetes mellitus with hyperglycemia; Z79.4 Long term (current) use of insulin
CPT/HCPCS: 80053; 80061; 81003; 82043; 82306; 83036; 84443; 87077; 87086; 87184

== ENCOUNTER 2022-05-30 12:11 | Outpatient (CLI) | payer MEDICAID, SELFPAY ==
[2021-01-08 14:46] VITALS: BP 146/97; BMI 51.1
--- NOTE | 2022-05-30 13:00 | MM_ITS ---
WS: [id number] BILATERAL 3D TOMOSYNTHESIS DIGITAL SCREENING MAMMOGRAPHY WITH CAD CLINICAL INFORMATION: SCREENING HISTORY: Screening mammogram. No current complaints. COMPARISON: 2018 TECHNIQUE: Bilateral CC and MLO views. FINDINGS: Scattered fibroglandular densities bilaterally. No suspicious focal mass, asymmetry, calcifications, or architectural distortion. No evidence of malignancy. Stable incidental lymph nodes along the LEFT axillary tail. A few incidental punctate calcifications. MM/[place] [id number] IMPRESSION: BI-RADS: 2-Benign FOLLOW UP: 1 Year Follow-up Recommend return to annual screening mammography.
== END 2022-05-30 12:12 | disposition home or self-care (01) ==
LOC: RAD 12:16
PROVIDERS: PCP Nurse Practitioner; Visit Provider Nurse Practitioner
DX: Z12.31 Encounter for screening mammogram for malignant neoplasm of breast (principal)
CPT/HCPCS: 77063; 77067

== ENCOUNTER → 2022-07-10 11:53 | Outpatient (BNVA) | payer MEDICAID, SELFPAY ==
[2021-01-08 14:46] VITALS: BP 146/97; BMI 51.1
== END ==
PROVIDERS: PCP Nurse Practitioner; Visit Provider Nurse Practitioner
DX: E11.22 Type 2 diabetes mellitus with diabetic chronic kidney disease (principal); N18.30 Chronic kidney disease, stage 3 unspecified; E11.65 Type 2 diabetes mellitus with hyperglycemia; Z79.4 Long term (current) use of insulin
CPT/HCPCS: 80053; 80061; 81000; 82043; 82607; 83036; 84443; 85025

== ENCOUNTER → 2022-07-16 13:39 | Outpatient (BNVA) | payer MEDICAID, SELFPAY ==
[2021-01-08 14:46] VITALS: BP 146/97; BMI 51.1
== END ==
PROVIDERS: PCP Nurse Practitioner; Visit Provider Specialist
DX: I25.10 Atherosclerotic heart disease of native coronary artery without angina pectoris (principal); E78.49 Other hyperlipidemia; Z87.891 Personal history of nicotine dependence; I12.9 Hypertensive chronic kidney disease with stage 1 through stage 4 chronic kidney disease, or unspecified chronic kidney disease; E11.22 Type 2 diabetes mellitus with diabetic chronic kidney disease; E11.65 Type 2 diabetes mellitus with hyperglycemia; N18.9 Chronic kidney disease, unspecified; Z79.4 Long term (current) use of insulin; Z79.82 Long term (current) use of aspirin
CPT/HCPCS: 99214

== ENCOUNTER → 2022-10-02 11:56 | Outpatient (BNVA) | payer MEDICAID, SELFPAY ==
[2022-08-07 14:04] VITALS: BP 150/88; BMI 45.2
== END ==
PROVIDERS: PCP Nurse Practitioner; Visit Provider Nurse Practitioner
DX: E11.65 Type 2 diabetes mellitus with hyperglycemia (principal); Z79.4 Long term (current) use of insulin
CPT/HCPCS: 80053; 83036

== ENCOUNTER → 2022-12-25 12:00 | Outpatient (BNVA) | payer MEDICAID, SELFPAY ==
[2022-08-07 14:04] VITALS: BP 150/88; BMI 45.2
== END ==
PROVIDERS: PCP Nurse Practitioner; Visit Provider Nurse Practitioner
DX: E11.65 Type 2 diabetes mellitus with hyperglycemia (principal); Z79.4 Long term (current) use of insulin; E66.01 Morbid (severe) obesity due to excess calories; I25.10 Atherosclerotic heart disease of native coronary artery without angina pectoris; J30.1 Allergic rhinitis due to pollen; E03.8 Other specified hypothyroidism; M79.7 Fibromyalgia
CPT/HCPCS: 80053; 81003; 83036; 84439; 84443; 84481; 85025; 87086

== ENCOUNTER → 2023-01-14 13:42 | Outpatient (BNVA) | payer MEDICAID, SELFPAY ==
[2022-08-07 14:04] VITALS: BP 150/88; BMI 45.2
== END ==
PROVIDERS: PCP Nurse Practitioner; Visit Provider Internal Medicine Cardiovascular Disease
DX: I25.10 Atherosclerotic heart disease of native coronary artery without angina pectoris (principal); E78.49 Other hyperlipidemia; E11.22 Type 2 diabetes mellitus with diabetic chronic kidney disease; I12.9 Hypertensive chronic kidney disease with stage 1 through stage 4 chronic kidney disease, or unspecified chronic kidney disease; N18.30 Chronic kidney disease, stage 3 unspecified; Z87.891 Personal history of nicotine dependence; Z79.4 Long term (current) use of insulin
CPT/HCPCS: 99214

== ENCOUNTER 2023-04-17 10:28 | Inpatient (IN) | payer MEDICAID, SELFPAY ==
[2022-08-07 14:04] VITALS: BP 150/88; BMI 45.2
[2023-04-17 10:29] VITALS: BP 166/95; PULSE 74; RESP 18; TEMP 37.2; O2SAT 98
--- NOTE | 2023-04-17 10:34 | W.ED.PSYCHS ---
HPI - Psych General: Chief Complaint: Psychiatric Symptoms Stated Complaint: psych eval Time Seen by Provider: 04/17/23 10:28 Source: patient and EMS Mode of arrival: EMS Limitations: no limitations History of Present Illness: 57-year-old female has a history of bipolar disorder she states that she has had an increased depression she states she has been seeing things she sees things crawling around on the ground she has had some suicidal thoughts no specific plans but states she is severely depressed and just does not feel like living anymore. Patient does want to get help. Associated symptoms: Reports visual hallucinations and depression Review of Systems Const: Denies: fever(s), chills, body aches or change in appetite ENMT: Denies: throat pain or dental pain Card: Denies: chest pain Resp: Denies: dyspnea GI: Denies: abdominal pain, nausea, vomiting or diarrhea Musc: Denies: neck pain or back pain Skin/Breast: Denies: rash Neuro: Denies: headache(s) Psych: Reports: depression and visual hallucinations PFS ED PFSH: Medical History [place] use DM type 2 causing CKD stage 3 Diabetes mellitus with hyperglycemia, with long-term current use of insulin Narcissistic personality disorder Borderline personality disorder Post-traumatic stress disorder, chronic Bipolar 1 disorder Allergic rhinitis due to pollen Diabetes History of abnormal cervical Pap smear (~2010) History of mammogram (~2015) Bipolar disorder PTSD (post-traumatic stress disorder) Fibromyalgia Chronic anxiety GERD (gastroesophageal reflux disease) Adult onset hypothyroidism Hyperlipidemia ASHD (arteriosclerotic heart disease) Morbid obesity Surgical History History of tubal ligation (~2002) History of colonoscopy (~10/2018) History of esophagogastroduodenoscopy (EGD) (~10/2018) History of colon polyps Family History Mother Hypertension Other Borderline personality disorder Cancer Denies family history of Anesthesia complication Bleeding disorder Social History Smoking and tobacco/nicotine status: former use of tobacco/nicotine Quit status (tobacco/nicotine): has quit using Year quit tobacco: 2018 Second hand smoke exposure: No Alcohol intake: former Year of sobriety/quit date alcohol: 1990 Substance/Drug Use: former Date of last use: 01.07.91 Adopted: No Caregiver/support person: Yes (Nurse on Wednesdays, aide comes in for 3 hours 3 days a week) Lives independently: Yes Household members: none Housing: House Marital status: / Marital status details: in 2010 Number of children: 3 Number of grandchildren: 8 Highest education level completed: Associate Degree: Academic Program Education level details: ADN service: No Current occupational status: disabled Current occupational exposures/hazards: No Pets and animals: Yes Pets & animals: cat(s) Leisure activites: music, reading and other Leisure activities details: watch TV, sew, take care of house plants Sexually active: No Do you think of yourself as: Straight/Heterosexual Current gender identity: Female Padmini/Synagogue: [employer] Special padmini needs: No Agree to transfusion: Yes Female Reproductive History: Para: 3 Spontaneous abortions: Yes (1) Physical Exam Const: COMMON NORMALS: patient oriented x3 HENMT: COMMON NORMALS: normocephalic and atraumatic HEAD & SCALP: normocephalic and atraumatic Eye: COMMON NORMALS: Equal, round and reactive pupils present and EOMs intact bilaterally PUPIL: Yes Equal, round and reactive pupils present Neck/C-Spine: COMMON NORMALS: full ROM and supple Chest: COMMONS NORMALS: normal inspection of the chest Resp: COMMON NORMALS: normal respiratory effort and No use of accessory muscles Cardio: COMMON NORMALS: regular rate, regular rhythm and No murmurs present (Cardio) RATE: regular rate RHYTHM: regular rhythm Extremity: COMMON NORMALS: normal to inspection and full ROM Neuro: COMMON NORMALS: patient oriented x3, moves all extremities and no focal motor deficits Psych: COMMON NORMALS: mental status grossly normal, Normal thought process present and cooperative ATTITUDE: Yes paranoid MOOD & AFFECT: Yes depressed mood THOUGHT PROCESS: Normal thought process present THOUGHT CONTENT: Yes Suicidality present Skin: COMMON NORMALS: no rashes or lesions noted and no wounds GENERAL SKIN EXAM: no rashes or lesions noted Course Vital Signs: Vital signs: Vital Signs Temperature 98.9 F 04/17/23 10:29 Pulse Rate 74 04/17/23 10:29 Respiratory Rate 18 04/17/23 10:29 Blood Pressure 166/95 04/17/23 10:29 Pulse Oximetry 98 04/17/23 10:29 Oxygen Delivery Me thod Room Air 04/17/23 10:29 MDM - Psych Medical Decision Making Patient presents here with hallucinations along with depression patient is placed on a 96-hour hold I spoke to the psychiatrist will admit. Medical Records I reviewed the patient's medical records. Lab Data I reviewed the patient's lab results. 04/17/23 10:39 04/17/23 10:39 Laboratory Results WBC 13.52 10^3/uL (3.29-11.43) H 04/17/23 10:39 RBC 5.23 10^6/uL (3.85-5.65) 04/17/23 10:39 Hgb 15.70 g/dL (11.27-16.99) 04/17/23 10:39 Hct 49.4 % (36-47) H 04/17/23 10:39 MCV 94.5 fl (85-98) 04/17/23 10:39 MCH 30.0 pg (27-33) 04/17/23 10:39 MCHC 31.8 g/dL (30-55) 04/17/23 10:39 RDW 12.6 % (12.1-15.1) 04/17/23 10:39 Plt Count 388 10^3/cmm (157-399) 04/17/23 10:39 MPV 9.8 fL (7.4-10.4) 04/17/23 10:39 Neut % (Auto) 62.3 % 04/17/23 10:39 Lymph % (Auto) 25.0 % 04/17/23 10:39 [place] % (Auto) 6.1 % 04/17/23 10:39 Eos % (Auto) 5.4 % 04/17/23 10:39 Baso % (Auto) 0.9 % 04/17/23 10:39 Neut # (Auto) 8.42 10^3/uL (1.8-7.7) H 04/17/23 10:39 Lymph # (Auto) 3.4 10^3/uL (0.8-4.8) 04/17/23 10:39 [place] # (Auto) 0.8 10^3/uL (0.2-0.9) 04/17/23 10:39 Eos # (Auto) 0.7 10^3/uL (0.0-0.8) 04/17/23 10:39 Baso # (Auto) 0.1 10^3/uL (0.0-0.1) 04/17/23 10:39 Nucleated RBC % (auto) 0 % 04/17/23 10:39 Nucleated RBCs # 0.0 /100WBC 04/17/23 10:39 Sodium 141 mmol/L (136-145) 04/17/23 10:39 Potassium 3.6 mmol/L (3.5-5.1) 04/17/23 10:39 Chloride 102 mmol/L (98-107) 04/17/23 10:39 Carbon Dioxide 26 mmol/L (22-29) 04/17/23 10:39 Anion Gap 16.6 (5-19) 04/17/23 10:39 BUN 10 mg/dL (6-20) 04/17/23 10:39 Creatinine 1.4 mg/dL (0.5-0.9) H 04/17/23 10:39 GFR Calculation 38.9 mL/min (90-130) L 04/17/23 10:39 Glucose 97 mg/dL (65-115) 04/17/23 10:39 POC Glucose 151 mg/dL (70-110) H 04/17/23 11:31 Calculated Osmolality 291 mOsm/kg (285-295) 04/17/23 10:39 Calcium 10.4 mg/dL (8.5-10.5) 04/17/23 10:39 Total Bilirubin 0.3 mg/dL (0.15-1.2) 04/17/23 10:39 AST 17 U/L (0-32) 04/17/23 10:39 ALT 15 U/L (0-33) 04/17/23 10:39 Alkaline Phosphatase 99 U/L (35-105) 04/17/23 10:39 Total Protein 8.0 g/dL (6.6-8.7) 04/17/23 10:39 Albumin 3.9 g/dL (3.5-5.2) 04/17/23 10:39 Globulin 4.1 g/dL (1.3-4.6) 04/17/23 10:39 TSH 2.23 uIU/mL (0.27-4.20) 04/17/23 10:39 Salicylates < 0.3 mg/dL (3-10) L 04/17/23 10:39 Acetaminophen < 5.0 ug/mL (10-30) L 04/17/23 10:39 [place] 1.0 mmol/L (0.6-1.2) 04/17/23 10:39 Ethyl Alcohol < 10 mg/dL (0-10) 04/17/23 10:39 No radiology studies performed this visit Discharge Plan Discharge Patient Disposition: Admitted As Inpatient Clinical Impression: Acute psychosis, Depression Condition: Stable Prescriptions: No Action omega-3 fatty acids [Fish Oil Concentrate] 1,000 mg capsule 1,000 mg PO BID aspirin 325 mg tablet 325 mg PO DAILY calcium citrate 250 mg calcium tablet 250 mg PO DAILY cholecalciferol (vitamin D3) 250 mcg (10,000 unit) capsule 10,000 unit PO DAILY chromium picolinate 200 mcg tablet 200 mcg PO DAILY coenzyme Q10 [Co Q-10] 400 mg capsule 400 mg PO DAILY biotin 1 mg capsule 1 mg PO DAILY mecobalamin (vitamin B12) 1,000 mcg tablet,disintegrating 500 mcg sublingual DAILY Rx Instructions: place tablet under tongue and allow to dissolve for at least30 secs before swallowing multivitamin Tablet 1 tab PO DAILY (DME) insulin syringe-needle U-100 [BD Insulin Syringe] 1 mL 27 gauge x 1/2 syringe See Rx Instructions .Route Qty: 100 0RF Rx Instructions: As directed cholecalciferol (vitamin D3) 1,250 mcg (50,000 unit) capsule 50,000 unit PO .Monthly Qty: 1 2RF folic acid 1 mg tablet 1 mg PO DAILY Qty: 30 2RF Toujeo Max U-300 SoloStar 300 unit/mL (3 mL) insulin pen 85 unit SUBCUT DAILY Qty: 6 2RF (DME) lancets [OneTouch Delica Plus Lancet] 33 gauge misc See Rx Instructions .Route Qty: 100 0RF Rx Instructions: one three times daily Victoza 3-Tree 0.6 mg/0.1 mL (18 mg/3 mL) pen injector 1.2 mg SUBCUT DAILY Qty: 9 2RF pen needle, diabetic [TechLITE Pen Needle] 32 gauge x 5/32 needle See Rx Instructions .ROUTE .COMPLEX Qty: 100 5RF Dose Instruction: USE 2 ONCE DAILY Rx Instructions: USE 2 ONCE DAILY (DME) OneTouch Ultra Test Strip See Rx Instructions .Route Qty: 50 5RF Rx Instructions: one strip three times daily sulfamethoxazole-trimethoprim [Bactrim DS] 800-160 mg tablet 1 tab PO BID PRN tizanidine 4 mg tablet 4 mg PO TID rosuvastatin [Crestor] 10 mg tablet 10 mg PO DAILY Qty: 90 3RF propranolol 60 mg tablet 30 mg PO BID Qty: 90 3RF potassium chloride 10 mEq capsule, extended release 10 meq PO .every other day Qty: 90 2RF Rx Instructions: when pt takes lasix isosorbide mononitrate 120 mg tablet extended release 24 hr 120 mg PO QAM Qty: 90 3RF nitroglycerin [Nitrostat] 0.4 mg tablet, sublingual 0.4 mg SUBLINGUAL Q5M PRN (Reason: chest pain) Qty: 25 5RF furosemide [Lasix] 20 mg tablet 20 mg PO .every other day Qty: 90 3RF amitriptyline 50 mg tablet 50 mg PO .qhs Qty: 30 3RF Rx Instructions: Take 1 tablet daily at bedtime lithium carbonate 300 mg tablet extended release 300 mg PO .qhs Qty: 30 3RF Rx Instructions: take with 450mg dose for total daily dose of 750mg lithium carbonate 450 mg tablet extended release See Rx Instructions .ROUTE .COMPLEX Qty: 30 4RF Dose Instruction: TAKE 1 TABLET BY MOUTH AT BEDTIME (TAKE WITH 300MG DOSE FOR TOTAL DAILY DOSE OF 750MG) Rx Instructions: TAKE 1 TABLET BY MOUTH AT BEDTIME (TAKE WITH 300MG DOSE FOR TOTAL DAILY DOSE OF 750MG) duloxetine [Cymbalta] 60 mg capsule,delayed release(DR/EC) 120 mg PO DAILY Qty: 60 4RF Rx Instructions: Take 2 capsules by mouth every morning (DME) blood-glucose meter [OneTouch Ultra2 Meter] Kit See Rx Instructions .Route Qty: 1 0RF Rx Instructions: As directed glipizide 5 mg tablet extended release 24hr 5 mg PO DAILY Qty: 30 0RF levocetirizine 5 mg tablet 5 mg PO DAILY Qty: 30 0RF levothyroxine [Synthroid] 50 mcg tablet 50 mcg PO DAILY Qty: 30 0RF tramadol 50 mg tablet 50 mg PO Q6H Qty: 120 0RF magnesium oxide 400 mg (241.3 mg magnesium) tablet 400 mg PO BID Qty: 60 0RF Referrals: Jamin Egan, [employer]OL MANAGER-C [Primary Care Provider] - Coding Level of Care Code ED Managing Jeweler for Neymar Castro
[2023-04-17 10:47] LABS: Basophils # 0.1 10^3/uL (0.0-0.1); Basophils % 0.9 %; Eosinophils # 0.7 10^3/uL (0.0-0.8); Eosinophils % 5.4 %; Hematocrit 49.4 % (36-47); Lymphocytes # 3.4 10^3/uL (0.8-4.8); Mean Corpuscular HGB Conc 31.8 g/dL (30-55); Mean Corpuscular Volume 94.5 fl (85-98); Mean Platelet Volume 9.8 fL (7.4-10.4); Monocytes # 0.8 10^3/uL (0.2-0.9); Monocytes % 6.1 %; Neutrophils # 8.42 10^3/uL (1.8-7.7); Neutrophils % 62.3 %; Nucleated Red Blood Cells % 0 %; Platelet Count 388 10^3/cmm (157-399); Red Blood Count 5.23 10^6/uL (3.85-5.65); Red Cell Distribution Width 12.6 % (12.1-15.1); White Blood Count 13.52 10^3/uL (3.29-11.43)
[2023-04-17 11:17] LABS: Alanine Aminotransferase 15 U/L (0-33); Albumin Level 3.9 g/dL (3.5-5.2); Alkaline Phosphatase 99 U/L (35-105); Anion Gap 16.6 (5-19); Aspartate Amino Transferase 17 U/L (0-32); Blood Urea Nitrogen 10 mg/dL (6-20); Calcium 10.4 mg/dL (8.5-10.5); Carbon Dioxide 26 mmol/L (22-29); Chloride 102 mmol/L (98-107); Globulin 4.1 g/dL (1.3-4.6); Glomerular Filtration Rate 38.9 mL/min (90-130); Glucose 97 mg/dL (65-115); Osmolality Calculated 291 mOsm/kg (285-295); Potassium 3.6 mmol/L (3.5-5.1); Sodium 141 mmol/L (136-145); Thyroid Stimulating Hormone 2.23 uIU/mL (0.27-4.20); Total Bilirubin 0.3 mg/dL (0.15-1.2)
--- NOTE | 2023-04-17 11:17 | PC.NURSE ---
96 hour hold rights read to patient. Patient verbalized understandings and copy of rights given to patient.
[2023-04-17 11:19] LABS: Acetaminophen < 5.0 ug/mL (10-30); Alcohol Level < 10 mg/dL (0-10); Salicylate < 0.3 mg/dL (3-10)
[2023-04-17 11:34] LABS: Glucose Point of Care 151 mg/dL (70-110)
--- NOTE | 2023-04-17 12:25 | PC.NURSE ---
I attempted to call report on this patient to [facility] and was told by Debbie that the room was not clean and that she had called housekeeping and they were not on the floor yet. Debbie also stated the SE[facility]ST[facility]N Bravo was in a physician meeting and would have to call me back.
[2023-04-17 13:33] LABS: Amphetamines Screen Urine Negative (Negative); Barbiturates Screen Urine Negative (Negative); Benzodiazepines Screen Urine Negative (Negative); Cocaine Screen Urine Negative (Negative); Opiate Screen Urine Negative (Negative); PCP Screen Urine Negative (Negative); THC Screen Urine Negative (Negative)
[2023-04-17 14:41] VITALS: BP 121/74; PULSE 74; RESP 16; TEMP 36.6; O2SAT 95
--- NOTE | 2023-04-17 16:20 | PC.NURSE ---
PT ARRIVED TO THE ED FOR HALLUCINATIONS. UPON ADMIT TO THE [facility] PT SPEECH WAS RAMBLING AND EXCESSIVE. PT STATES THAT FOR THE LAST 3 WEEKS HER HALLUCINATIONS HAVE GOTTEN WORSE. PT STATED THIS SHADOW DOG IM USED TO SEEING HIM BUT HERE LATELY EVERY LITTLE SHADOW IS A BUG OR A VISUAL ANOMALY. ESPECIALLY IF IT IS WITHIN A PATTERN. PT STATES THAT SHE HAS NOT BEEN TAKING HER MEDICATION PROPERLY THE LAST COUPLE WEEKS. PT ALSO STATES THAT HER HOUSE DOES NOT HAVE ELECTRICITY OR RUNNING WATER.
[2023-04-17 16:55] LABS: Glucose Point of Care 152 mg/dL (70-110)
[2023-04-17] MEDS: magnesium oxide 400 mg tablet PO (18:40)
[2023-04-17] MEDS: tizanidine 4 mg Tablet PO (20:13)
[2023-04-17] MEDS: amitriptyline 25 mg Tablet 50 MG PO (20:13)
[2023-04-17] MEDS: lithium carbonate ER 300 mg Tablet PO (20:13)
[2023-04-17] MEDS: TRAMadol 50 mg Tablet PO (20:13)
[2023-04-17] MEDS: lithium carbonate ER 450 mg Tablet PO (20:13)
[2023-04-17 20:14] LABS: Glucose Point of Care 227 mg/dL (70-110)
[2023-04-17 20:15] VITALS: BP 167/93; PULSE 76; RESP 18; TEMP 37.1; O2SAT 97
[2023-04-17 21:03] LABS: Estmated Average Glucose 160; Hemoglobin A1C 7.2 % (4.0-6.0)
[2023-04-18 06:00] VITALS: BP 148/86; PULSE 114; RESP 20; TEMP 36.9; O2SAT 94
--- NOTE | 2023-04-18 07:44 | P.NPUHP_ITS ---
Providers/Chief Complaint 2 Admitting Physician: Fredy Tucker MD Primary Care Provider: JANKI Patel Chief Complaint: psych eval HPI NPU History of Present Illness Milena Carter is a 57 year old female who presented to the emergency department with the following report: Chief Complaint: Psychiatric Symptoms Stated Complaint: psych eval Time Seen by Provider: 04/17/23 10:28 Source: patient and EMS Mode of arrival: EMS Limitations: no limitations History of Present Illness: 57-year-old female has a history of bipolar disorder she states that she has had an increased depression she states she has been seeing things she sees things crawling around on the ground she has had some suicidal thoughts no specific plans but states she is severely depressed and just does not feel like living anymore. Patient does want to get help. Associated symptoms: Reports visual hallucinations and depression She was admitted to the neuropsychiatric unit for definitive treatment of those issues.Patient reports experiencing visual hallucinations and severe depression. HISTORY OF THE PRESENT COMPLAINT The patient, a 62-year-old woman, has been taking lithium since 1989 and cannot imagine going without it. She also takes duloxetine, amitriptyline, and Imitrex regularly. She has been experiencing hallucinations for the past three to four weeks, which have been particularly severe. She sees patterns of bugs and other creatures in screw holes and other small spaces, and feels compelled to touch them to confirm they are not real. She also sees a shadowy figure that she describes as a shadow monster , which she has seen her whole life. These hallucinations occur daily, usually in the evening or at night, and are not confined to her own home. The patient's hallucinations have been causing her significant distress and have been disrupting her sleep. She also reported an incident where she thought she saw a dog while driving and stopped to check, only to find nothing there. She believes her lithium levels are off, but it has been a while since they were last checked. The patient also reported that she has been feeling depressed, which she attributes to living alone and the hallucinations. She also mentioned that she gets seasonal depression and usually sits next to a window or in her truck to get sunlight, but it has been too rainy recently for her to do this. She also mentioned that she has been talking faster and louder when around people, which she recognizes as a sign of aranza. The patient has a history of psychiatric hospitalizations, with the most recent one in 1992 due to clanging her antidepressant. She has been on various antidepressants throughout her life, including Prozac, Effexor, and amitriptyline. She reported that amitriptyline works better for her than Trazodone, which gives her night terrors. The patient also reported feeling overwhelmed and has been struggling with her weight since she was a child. She has a history of methamphetamine use, which she used to keep her weight down. She has been clean and sober for 32 years. She also reported that she has type 2 diabetes, has had three heart attacks, has early onset degenerative arthritis, and thyroid problems. The patient reported feeling depressed and not enjoying things as much as she usually does. She also reported feeling like she doesn't matter to people, but denied having any suicidal thoughts. She reported having nightmares but not flashbacks, and denied having any issues with paranoia. She also reported having intrusive thoughts about her health and being alone. MENTAL HEALTH HISTORY Patient has been taking lithium since 1989. Other medications include loxetine, amitriptyline, and Cymbalta. Patient has a history of hallucinations, depression, and bipolar disorder. Patient was hospitalized in 1992 for 21 days due to clanging of antidepressants. SOCIAL HISTORY Patient lives alone and has been in recovery for 32 years, clean and sober. Patient has a history of methamphetamine use. Patient has been four times, with the last passing away due to a heart condition. Per her 07/15/2022 [facility] [place] outpatient psychiatric evaluation: [facility] [place] History and Physical Time In: 02:00 Time Out: 03:00 Chief Complaint: need my medications History of Present Illness: This is a 57-year-old female, she has been a longtime patient at this clinic, was seeing Dr. Sandoval for a number of years, she recently saw Bertha Monique for a one-time appointment and devalued her throughout the session today, her comments on her were she is not the most intelligent person , and later she said she is not the sharpest tool in the shed . She has not seen for nearly a year, and when I asked her why she missed so many appointments during that time she says that they were not seeing patients during [facility], but when I told her that the clinic continue to do phone sessions throughout [facility] she then came up with various other reasons and eventually she said Dr. Sandoval really just wants to see kids and way, I think they were just looking for an excuse to get rid of me . Throughout the session the patient is grandiose but not delusional, she tends to idealize certain providers in her distant past and devalues others. She has clear narcissistic and borderline personality traits, but in reviewing her history, depression and a history PTSD have also and factors. The real question is bipolar disorder. She been on lithium since 1989, she had 1 psychiatric admission in 1992 for 3 weeks. This admission was in the context of when she was suicidal and had a gun in her mouth but says her 5-year-old daughter walked into the closet and stopped her. Not going to argue with a bipolar diagnosis since it has been in place for so long, the most important thing today is that she is fully aware of the risks and benefits of the lithium that she is on. She has been on it for 33 years now, her GFR is 46.5 and that is been trending down and with the combination of poorly controlled diabetes, lithium represents a reasonable risk to her kidney moving forward. I talked to her about this extensively today and she is fully aware of the risks of lithium and does not want to go off of it, and she has also talked to her database tester about it as well she says. Another concern I had is that long-term use of Xanax and physical dependence which she certainly has at this stage. I told her given her age, her chronic medical issues including worsening kidney disease and a history of 3 heart attacks, obesity, I told her long-term use of benzodiazepines represents a danger and would be best to start slowly tapering off of them. She says that she was on a total of 4 mg daily at 1 point. I told her that I would work with her on decreasing the Xanax as she seems fairly neutral about it today. At this time she says she is doing well because no aranza or psychosis, sleep is stable. She has had a history of bulimia in the past but that was many years ago, she also says that she was seeing a weight doctor from the age of 56 years old and was going amphetamines at the age of [age] years old until 18 years old for weight loss to help control weight. She ended up abusing methamphetamine, amphetamines, alcohol and she says other people's pills whenever they were in her earlier years, but she says she is been sober for 32 years now. There is no current suicidal ideations or manic symptoms. History Past Psychiatric History: 1 admission for 3 weeks in 1992, 1 suicide attempt in 1992 when she put a gun in her mouth and her 5-year-old daughter doctor, she denies other history of self-harm but she did have bulimia as a coping strategy for a number of years in addition to substance use. She has been on lithium for 33 years. Family History: She says bipolar disorder goes back 5 generations in her family. Past Medical History: Poorly controlled diabetes, coronary artery disease, hyperlipidemia, fibromyalgia, hypothyroidism Substance Use History: She denies any significant substance use for 32 years. In the past she abused methamphetamine, alcohol, pain pills, and other people's pills wherever they were . Social History: Please see assessment and chart notes for more detail on this as we tended to focus on history today. Meds NPU Home Medications Medication Instructions Recorded Confirmed Last Taken Type biotin 1 mg capsule 1 mg PO DAILY 08/15/20 04/17/23 04/16/23 History mecobalamin (vitamin B12) 1,000 500 mcg sublingual DAILY 08/15/20 04/17/23 04/16/23 History mcg disintegrating tablet,sublingual blood-glucose meter (OneTouch #1 ea 07/08/21 04/17/23 Unknown Rx Ultra2 Meter kit) blood sugar diagnostic (OneTouch #50 ea 04/11/22 04/17/23 Unknown Rx Ultra Test strips) aspirin 325 mg tablet 325 mg PO DAILY 07/16/22 04/17/23 04/16/23 History calcium citrate 250 mg PO DAILY 07/16/22 04/17/23 04/16/23 History cholecalciferol (vitamin D3) 250 10,000 unit PO DAILY 07/16/22 04/17/23 04/16/23 History mcg (10,000 unit) capsule chromium picolinate 200 mcg tablet 200 mcg PO DAILY 07/16/22 04/17/23 04/16/23 History coenzyme Q10 400 mg capsule (Co 400 mg PO DAILY 07/16/22 04/17/23 04/16/23 History Q-10) multivitamin 1 tab PO DAILY 07/16/22 04/17/23 04/16/23 History cholecalciferol (vitamin D3) 1,250 50,000 unit PO .Monthly #1 cap 12/25/22 04/17/23 04/03/23 Rx mcg (50,000 unit) capsule folic acid 1 mg tablet 1 mg PO DAILY #30 tabs 12/25/22 04/17/23 04/16/23 Rx insulin syringe-needle U-100 1 mL #100 ea 12/25/22 04/17/23 Unknown Rx 27 gauge x 1/2 (BD Insulin Syringe) lancets 33 gauge (OneTouch Delica #100 ea 12/25/22 04/17/23 Unknown Rx Plus Lancet) liraglutide 0.6 mg/0.1 mL (18 mg/3 1.2 mg (0.2 mL) SUBCUT DAILY #9 mL 12/25/22 04/17/23 04/15/23 Rx mL) subcutaneous pen injector (Victoza 3-Tree) isosorbide mononitrate 120 mg 120 mg PO QAM #90 tabs 01/14/23 04/17/23 04/16/23 Rx tablet,extended release 24 hr nitroglycerin 0.4 mg sublingual 0.4 mg sublingual Q5M PRN chest 01/14/23 04/17/23 Unknown Rx tablet (Nitrostat) pain #25 tabs propranolol 60 mg tablet 30 mg (1/2 x 60 mg) PO BID #90 tabs 01/14/23 04/17/23 04/16/23 Rx rosuvastatin 10 mg tablet (Crestor) 10 mg PO DAILY #90 tabs 01/14/23 04/17/23 04/16/23 Rx tizanidine 4 mg tablet 4 mg PO TID muscle spasticity 01/14/23 04/17/23 Unknown History duloxetine 60 mg capsule,delayed 120 mg (2 x 60 mg) PO DAILY #60 01/21/23 04/17/23 04/16/23 Rx release (Cymbalta) caps lithium carbonate 450 mg See Rx Instructions .Route 01/21/23 04/17/23 04/16/23 Rx tablet,extended release .COMPLEX #30 tabs glipizide 5 mg tablet, extended 5 mg PO DAILY #30 tabs 03/27/23 04/17/23 04/16/23 Rx release 24 hr levocetirizine 5 mg tablet 5 mg PO DAILY #30 tabs 04/16/23 04/17/23 04/16/23 Rx levothyroxine 50 mcg tablet 50 mcg PO DAILY #30 tabs 04/16/23 04/17/23 04/16/23 Rx (Synthroid) magnesium oxide 400 mg (241.3 mg 400 mg PO BID #60 tabs 04/16/23 04/17/23 04/16/23 Rx magnesium) tablet amitriptyline 50 mg tablet 50 mg PO BEDTIME 04/17/23 04/17/23 04/16/23 History furosemide 20 mg tablet (Lasix) 20 mg PO EVERY OTHER DAY 04/17/23 04/17/23 Unknown History lithium carbonate 300 mg 300 mg PO BEDTIME 04/17/23 04/17/23 04/16/23 History tablet,extended release omega 1-rjw-cou-fish oil 1,000 mg 1 cap PO BID 04/17/23 04/17/23 04/16/23 History (120 mg-180 mg) capsule (Fish Oil) potassium chloride 10 mEq 10 meq PO EVERY OTHER DAY 04/17/23 04/17/23 Unknown History capsule,extended release tramadol 50 mg tablet 50 mg PO QID 04/17/23 04/17/23 04/16/23 History Allergies Allergy/AdvReac Type Severity Reaction Status Date / Time jacobo pepper [green pepper] Allergy Unknown Unknown Verified 04/17/23 11:55 oats Allergy Unknown Unknown Verified 04/17/23 11:55 PFSH NPU 2 PFSH: Medical History Lanett use DM type 2 causing CKD stage 3 Diabetes mellitus with hyperglycemia, with long-term current use of insulin Narcissistic personality disorder Borderline personality disorder Post-traumatic stress disorder, chronic Bipolar 1 disorder Allergic rhinitis due to pollen Diabetes History of abnormal cervical Pap smear (~2010) History of mammogram (~2015) Bipolar disorder PTSD (post-traumatic stress disorder) Fibromyalgia Chronic anxiety GERD (gastroesophageal reflux disease) Adult onset hypothyroidism Hyperlipidemia ASHD (arteriosclerotic heart disease) Morbid obesity Surgical History History of tubal ligation (~2002) History of colonoscopy (~10/2018) History of esophagogastroduodenoscopy (EGD) (~10/2018) History of colon polyps Family History Mother Hypertension Other Borderline personality disorder Cancer Denies family history of Anesthesia complication Bleeding disorder Social History Smoking and tobacco/nicotine status: former use of tobacco/nicotine Quit status (tobacco/nicotine): has quit using Year quit tobacco: 2017 Second hand smoke exposure: No Alcohol intake: former Year of sobriety/quit date alcohol: 1990 Substance/Drug Use: former Date of last use: 01.07.91 Adopted: No Caregiver/support person: Yes (Nurse on Wednesdays, aide comes in for 3 hours 3 days a week) Lives independently: Yes Household members: none Housing: House Marital status: / Marital status details: in 2010 Number of children: 3 Number of grandchildren: 8 Highest education level completed: Associate Degree: Academic Program Education level details: ADN service: No Current occupational status: disabled Current occupational exposures/hazards: No Pets and animals: Yes Pets & animals: cat(s) Leisure activites: music, reading and other Leisure activities details: watch TV, sew, take care of house plants Sexually active: No Do you think of yourself as: Straight/Heterosexual Current gender identity: Female Padmini/Congregational: Congregation Special padmini needs: No Agree to transfusion: Yes Female Reproductive History: Para: 3 Spontaneous abortions: Yes (1) Mental Status Exam 2 MSE Comments: This is a morbidly obese white female in hospital scrubs with limited grooming but appropriate eye contact. No abnormal movements except for mild psychomotor retardation. Cooperative with exam in mild distress. Speech was slightly decreased rate normal volume. Mood described as depressed, affect congruent. Thought process organized. Thought content: Patient denied suicidal or homicidal ideation but did endorse feeling hopeless and insignificant, she denied current homicidal ideation, there were no delusions reported or noted, she endorsed visual but denied auditory hallucinations. Attention and concentration was intact and memory appeared mostly reliable but none were formally tested. She is alert and oriented x 3. Insight and judgment limited impulse control limited. Vitals/I&O/Wt Last Vital Signs Temp 98.5 F 04/18/23 06:00 Pulse 114 H 04/18/23 06:00 Resp 20 H 04/18/23 06:00 BP 148/86 04/18/23 06:00 Pulse Ox 94 04/18/23 06:00 O2 Del Method Room Air 04/18/23 06:00 Weight last 48 hrs Weight 145.15 kg Data NPU 04/17/23 10:39 04/17/23 10:39 A&P Assessment and plan (1) Borderline personality disorder: (2) Post-traumatic stress disorder, chronic: (3) Lanett use: (4) Acute psychosis: (5) Depression: (6) History of bipolar disorder: Plan This is a 57-year-old white female with a long history of psychiatric treatment and mental health challenges who presents reporting significant visual hallucinations against the backdrop of a diagnosis of bipolar disorder but not reporting significant manic symptoms but reporting increased depression open to possible medication changes. 1. Continue current medication. We will evaluate for changes. 2. Encourage individual, group and milieu therapy. 3. Continue every 15 minute checks for safety. 4. Obtain collateral information. 5. Obtain lithium level. Involuntary Hold Information 2 96 Hour Hold: 96 Hour Involuntary Admission: Yes 96 Hour Hold Ending Date: 04/23/23 96 Hour Hold Ending Time: 11:08 Attestations NPU 2 Medical Necessity Statement*: Inpatient hospitalization is medically necessary and the clinically appropriate intervention at this time. We will monitor/change medications as indicated. She will be in the hospital for over 2 midnights. Likely length of stay 3-5 days. Coding Level of Care Code Acute Code for [facility] Fw Diagnoses Borderline personality disorder F60.3 Post-traumatic stress disorder, chronic F43.12 Lanett use Z79.899 Acute psychosis F23 Depression F32.A History of bipolar disorder Z86.59
[2023-04-18] MEDS: insulin lispro 100 unit/1 mL SUBCUT ×3 (08:03→18:00)
[2023-04-18] MEDS: isosorbide mononitrate ER 60 mg Tablet 120 MG PO (08:04)
[2023-04-18] MEDS: TRAMadol 50 mg Tablet PO ×4 (08:04→20:16)
[2023-04-18] MEDS: tizanidine 4 mg Tablet PO ×3 (08:04→20:16)
[2023-04-18] MEDS: atorvastatin 40 mg Tablet PO (08:04)
[2023-04-18] MEDS: propranolol 20 mg Tablet 30 MG PO ×2 (08:05→18:00)
[2023-04-18] MEDS: FUROsemide 20 mg Tablet PO (08:05)
[2023-04-18] MEDS: omega-3 fatty acids 1,000 mg Capsule 1000 MG PO ×2 (08:05→18:00)
[2023-04-18] MEDS: duloxetine 60 mg Capsule 120 MG PO (08:05)
[2023-04-18] MEDS: levothyroxine 50 mcg Tablet PO (08:05)
[2023-04-18] MEDS: cyanocobalamin 1,000 mcg Tablet 500 MCG PO (08:05)
[2023-04-18] MEDS: aspirin 325 mg Tablet PO (08:05)
[2023-04-18] MEDS: cholecalciferol (vitamin D3) 5,000 unit Tablet 10000 UNIT PO (08:05)
[2023-04-18] MEDS: multivitamin therapeutic Tablet 1 TAB PO (08:05)
[2023-04-18] MEDS: magnesium oxide 400 mg tablet PO ×2 (08:05→18:00)
[2023-04-18] MEDS: potassium chloride ER 10 mEq Tablet PO (08:05)
[2023-04-18] MEDS: folic acid 1 mg Tablet PO (08:05)
[2023-04-18 10:19] LABS: Glucose Point of Care 230 mg/dL (70-110)
[2023-04-18 11:55] LABS: Glucose Point of Care 220 mg/dL (70-110)
[2023-04-18 14:00] VITALS: BP 157/84; PULSE 86; RESP 16; TEMP 36.6; O2SAT 95
[2023-04-18 17:30] LABS: Glucose Point of Care 238 mg/dL (70-110)
[2023-04-18] MEDS: amitriptyline 25 mg Tablet 50 MG PO (20:16)
[2023-04-18 20:43] LABS: Glucose Point of Care 325 mg/dL (70-110)
[2023-04-18 21:01] LABS: Lithium 0.6 mmol/L (0.6-1.2)
[2023-04-18 21:45] VITALS: BP 145/95; PULSE 67; RESP 20; TEMP 36.7; O2SAT 100
[2023-04-19 06:00] VITALS: BP 147/92; PULSE 68; RESP 18; TEMP 36.6; O2SAT 98
[2023-04-19 07:42] LABS: Glucose Point of Care 219 mg/dL (70-110)
[2023-04-19] MEDS: insulin lispro 100 unit/1 mL SUBCUT ×3 (08:25→17:55)
[2023-04-19] MEDS: propranolol 20 mg Tablet 30 MG PO ×2 (08:30→17:56)
[2023-04-19] MEDS: TRAMadol 50 mg Tablet PO ×4 (08:31→20:42)
[2023-04-19] MEDS: atorvastatin 40 mg Tablet PO (08:32)
[2023-04-19] MEDS: aspirin 325 mg Tablet PO (08:32)
[2023-04-19] MEDS: cyanocobalamin 1,000 mcg Tablet 500 MCG PO (08:32)
[2023-04-19] MEDS: tizanidine 4 mg Tablet PO ×3 (08:32→20:43)
[2023-04-19] MEDS: duloxetine 60 mg Capsule 120 MG PO (08:32)
[2023-04-19] MEDS: isosorbide mononitrate ER 60 mg Tablet 120 MG PO (08:32)
[2023-04-19] MEDS: magnesium oxide 400 mg tablet PO ×2 (08:32→17:56)
[2023-04-19] MEDS: cholecalciferol (vitamin D3) 5,000 unit Tablet 10000 UNIT PO (08:32)
[2023-04-19] MEDS: omega-3 fatty acids 1,000 mg Capsule 1000 MG PO ×2 (08:33→17:56)
[2023-04-19] MEDS: levothyroxine 50 mcg Tablet PO (08:33)
[2023-04-19] MEDS: multivitamin therapeutic Tablet 1 TAB PO (08:33)
[2023-04-19] MEDS: folic acid 1 mg Tablet PO (08:33)
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
[2023-04-19 11:51] LABS: Glucose Point of Care 205 mg/dL (70-110)
[2023-04-19 14:00] VITALS: BP 160/82; PULSE 62; RESP 15; TEMP 36.5; O2SAT 99
--- NOTE | 2023-04-19 14:02 | P.NPUPN_ITS ---
Subjective NPU 2 Subjective: Patient presented today continuing to report that she was feeling depressed but staff reports no overt signs of depression. She talked about her daughter or some persons he knows being on Lyrica and possibly wanting to get on that. We discussed the risks, benefits and alternatives of a trial of Lexapro for depression and anxiety and she understood and agreed to proceed as is documented in this note. We also discussed checking her lithium level and considering an increase there as well. Mental Status Exam 2 MSE Comments: This is a morbidly obese white female in hospital scrubs with limited grooming but appropriate eye contact. No abnormal movements except for mild psychomotor retardation. Cooperative with exam in mild distress. Speech was slightly decreased rate normal volume. Mood described as depressed, affect seems euthymic. Thought process organized. Thought content: Patient denied suicidal or homicidal ideation but did endorse feeling hopeless and insignificant, she denied current homicidal ideation, there were no delusions reported or noted, she endorsed visual but denied auditory hallucinations. Attention and concentration was intact and memory appeared mostly reliable but none were formally tested. She is alert and oriented x 3. Insight and judgment limited impulse control limited. Vitals/I&O/Wt Last Vital Signs Temp 97.8 F 04/19/23 06:00 Pulse 68 04/19/23 06:00 Resp 18 04/19/23 06:00 BP 147/92 04/19/23 06:00 Pulse Ox 98 04/19/23 06:00 O2 Del Method Room Air 04/19/23 06:00 Data NPU 04/17/23 10:39 04/17/23 10:39 A&P Assessment and plan (1) Borderline personality disorder: (2) Post-traumatic stress disorder, chronic: (3) Arkwright use: (4) Acute psychosis: (5) Depression: (6) History of bipolar disorder: Plan This is a 57-year-old white female with a long history of psychiatric treatment and mental health challenges who presents reporting significant visual hallucinations against the backdrop of a diagnosis of bipolar disorder but not reporting significant manic symptoms but reporting increased depression open to possible medication changes. 1. Continue current medication. Initiate Lexapro 10 mg p.o. daily. 2. Encourage individual, group and milieu therapy. 3. Continue every 15 minute checks for safety. 4. Obtain collateral information. 5. Obtain lithium level. 0.6 first level will recheck and consider increasing. Involuntary Hold Information 2 96 Hour Hold: 96 Hour Involuntary Admission: Yes 96 Hour Hold Ending Date: 04/23/23 96 Hour Hold Ending Time: 11:08 Attestations NPU 2 Medical Necessity Statement*: Inpatient hospitalization is medically necessary and the clinically appropriate intervention at this time. We will monitor/change medications as indicated. Likely length of stay 2-4 days. Coding Level of Care Code Acute Code for g Fwd Diagnoses Borderline personality disorder F60.3 Post-traumatic stress disorder, chronic F43.12 Arkwright use Z79.899 Acute psychosis F23 Depression F32.A History of bipolar disorder Z86.59
[2023-04-19 17:47] LABS: Glucose Point of Care 232 mg/dL (70-110)
[2023-04-19 20:06] VITALS: BP 142/88; PULSE 64; RESP 18; TEMP 36.6; O2SAT 98
[2023-04-19 20:17] LABS: Glucose Point of Care 241 mg/dL (70-110)
[2023-04-19] MEDS: amitriptyline 25 mg Tablet 50 MG PO (20:42)
[2023-04-19] MEDS: lithium carbonate ER 450 mg Tablet PO (20:43)
[2023-04-19] MEDS: lithium carbonate ER 300 mg Tablet PO (20:43)
[2023-04-19] MEDS: escitalopram 10 mg Tablet PO (20:43)
[2023-04-20 06:00] VITALS: BP 115/80; PULSE 69; RESP 18; TEMP 36.7; O2SAT 96
[2023-04-20 07:30] LABS: Glucose Point of Care 160 mg/dL (70-110)
--- NOTE | 2023-04-20 08:33 | P.NPUPN_ITS ---
Subjective NPU 2 Subjective: Patient presented today reporting that things are going okay. She reports that she has tolerated the Lexapro and we discussed her lithium level being 0.6. We talked about the possibility of increasing her lithium and she identified that she would consider that. Otherwise she endorsed having less nightmares even though she woke up a lot and that she was starting to feel better. Mental Status Exam 2 MSE Comments: This is a morbidly obese white female in hospital scrubs with limited grooming but appropriate eye contact. No abnormal movements except for mild psychomotor retardation. Cooperative with exam in mild distress. Speech was slightly decreased rate normal volume. Mood described as a little better, affect seems euthymic. Thought process organized. Thought content: Patient denied suicidal or homicidal ideation but did endorse feeling hopeless and insignificant, she denied current homicidal ideation, there were no delusions reported or noted, she endorsed visual but denied auditory hallucinations. Attention and concentration was intact and memory appeared mostly reliable but none were formally tested. She is alert and oriented x 3. Insight and judgment limited impulse control limited. Vitals/I&O/Wt Last Vital Signs Temp 98.1 F 04/20/23 06:00 Pulse 69 04/20/23 06:00 Resp 18 04/20/23 06:00 BP 115/80 04/20/23 06:00 Pulse Ox 96 04/20/23 06:00 O2 Del Method Room Air 04/19/23 06:00 Weight last 48 hrs Weight 144.242 kg Weight 144.242 kg Data NPU 04/17/23 10:39 04/17/23 10:39 A&P Assessment and plan (1) Borderline personality disorder: (2) Post-traumatic stress disorder, chronic: (3) Stedman use: (4) Acute psychosis: (5) Depression: (6) History of bipolar disorder: Plan This is a 57-year-old white female with a long history of psychiatric treatment and mental health challenges who presents reporting significant visual hallucinations against the backdrop of a diagnosis of bipolar disorder but not reporting significant manic symptoms but reporting increased depression open to possible medication changes. 1. Continue current medication. Initiated Lexapro 10 mg p.o. daily. 2. Encourage individual, group and milieu therapy. 3. Continue every 15 minute checks for safety. 4. Obtain collateral information. 5. Obtain lithium level. 0.6 first level will recheck and consider increasing. Will likely increase lithium to 900 mg p.o. nightly of the ER. Involuntary Hold Information 2 96 Hour Hold: 96 Hour Involuntary Admission: Yes 96 Hour Hold Ending Date: 04/23/23 96 Hour Hold Ending Time: 11:08 Attestations NPU 2 Medical Necessity Statement*: Inpatient hospitalization is medically necessary and the clinically appropriate intervention at this time. We will monitor/change medications as indicated. Likely length of stay 1-3 days. Coding Level of Care Code Acute Code for [facility] Fwd Diagnoses Borderline personality disorder F60.3 Post-traumatic stress disorder, chronic F43.12 Stedman use Z79.899 Acute psychosis F23 Depression F32.A History of bipolar disorder Z86.59
[2023-04-20] MEDS: potassium chloride ER 10 mEq Tablet PO (08:55)
[2023-04-20] MEDS: magnesium oxide 400 mg tablet PO ×2 (08:56→17:58)
[2023-04-20] MEDS: folic acid 1 mg Tablet PO (08:56)
[2023-04-20] MEDS: cholecalciferol (vitamin D3) 5,000 unit Tablet 10000 UNIT PO (08:56)
[2023-04-20] MEDS: omega-3 fatty acids 1,000 mg Capsule 1000 MG PO ×2 (08:56→17:57)
[2023-04-20] MEDS: levothyroxine 50 mcg Tablet PO (08:56)
[2023-04-20] MEDS: FUROsemide 20 mg Tablet PO (08:56)
[2023-04-20] MEDS: multivitamin therapeutic Tablet 1 TAB PO (08:57)
[2023-04-20] MEDS: TRAMadol 50 mg Tablet PO ×4 (08:57→20:09)
[2023-04-20] MEDS: isosorbide mononitrate ER 60 mg Tablet 120 MG PO (08:57)
[2023-04-20] MEDS: duloxetine 60 mg Capsule 120 MG PO (08:58)
[2023-04-20] MEDS: escitalopram 10 mg Tablet PO (08:58)
[2023-04-20] MEDS: atorvastatin 40 mg Tablet PO (08:58)
[2023-04-20] MEDS: cyanocobalamin 1,000 mcg Tablet 500 MCG PO (08:59)
[2023-04-20] MEDS: tizanidine 4 mg Tablet PO ×3 (08:59→20:09)
[2023-04-20] MEDS: aspirin 325 mg Tablet PO (08:59)
[2023-04-20] MEDS: propranolol 20 mg Tablet 30 MG PO ×2 (08:59→17:58)
[2023-04-20 10:21] LABS: Lithium 0.7 mmol/L (0.6-1.2)
[2023-04-20] MEDS: insulin lispro 100 unit/1 mL SUBCUT ×3 (10:25→17:58)
[2023-04-20 12:11] LABS: Glucose Point of Care 272 mg/dL (70-110)
[2023-04-20 14:00] VITALS: BP 136/78; PULSE 62; RESP 16; TEMP 36.4; O2SAT 100
[2023-04-20 17:48] LABS: Glucose Point of Care 273 mg/dL (70-110)
[2023-04-20 19:43] VITALS: BP 156/81; PULSE 59; RESP 18; TEMP 36.3; O2SAT 98
[2023-04-20] MEDS: lithium carbonate ER 450 mg Tablet PO (20:09)
[2023-04-20] MEDS: lithium carbonate ER 300 mg Tablet PO (20:09)
[2023-04-20] MEDS: amitriptyline 25 mg Tablet 50 MG PO (20:09)
[2023-04-20 22:02] LABS: Glucose Point of Care 239 mg/dL (70-110)
[2023-04-21 06:00] VITALS: BP 150/81; PULSE 103; RESP 18; TEMP 36.6; O2SAT 96
[2023-04-21 07:46] LABS: Glucose Point of Care 271 mg/dL (70-110)
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
[2023-04-21] MEDS: cyanocobalamin 1,000 mcg Tablet 500 MCG PO (08:22)
[2023-04-21] MEDS: levothyroxine 50 mcg Tablet PO (08:22)
[2023-04-21] MEDS: escitalopram 10 mg Tablet PO (08:22)
[2023-04-21] MEDS: isosorbide mononitrate ER 60 mg Tablet 120 MG PO (08:22)
[2023-04-21] MEDS: FUROsemide 20 mg Tablet PO (08:23)
[2023-04-21] MEDS: omega-3 fatty acids 1,000 mg Capsule 1000 MG PO ×2 (08:23→17:24)
[2023-04-21] MEDS: tizanidine 4 mg Tablet PO ×3 (08:23→20:02)
[2023-04-21] MEDS: multivitamin therapeutic Tablet 1 TAB PO (08:23)
[2023-04-21] MEDS: potassium chloride ER 10 mEq Tablet PO (08:23)
[2023-04-21] MEDS: folic acid 1 mg Tablet PO (08:23)
[2023-04-21] MEDS: magnesium oxide 400 mg tablet PO ×2 (08:24→17:24)
[2023-04-21] MEDS: propranolol 20 mg Tablet 30 MG PO ×2 (08:24→17:23)
[2023-04-21] MEDS: insulin lispro 100 unit/1 mL SUBCUT ×3 (08:25→17:23)
[2023-04-21] MEDS: TRAMadol 50 mg Tablet PO ×4 (08:25→20:02)
[2023-04-21] MEDS: aspirin 325 mg Tablet PO (08:25)
[2023-04-21] MEDS: atorvastatin 40 mg Tablet PO (08:25)
[2023-04-21] MEDS: duloxetine 60 mg Capsule 120 MG PO (08:25)
[2023-04-21 11:43] LABS: Glucose Point of Care 231 mg/dL (70-110)
[2023-04-21 14:00] VITALS: BP 109/57; PULSE 94; RESP 15; TEMP 36.5; O2SAT 97
[2023-04-21 17:20] LABS: Glucose Point of Care 225 mg/dL (70-110)
[2023-04-21 19:51] VITALS: BP 134/79; PULSE 70; RESP 18; TEMP 36.7; O2SAT 98
[2023-04-21] MEDS: lithium carbonate ER 450 mg Tablet 900 MG PO (20:02)
[2023-04-21] MEDS: amitriptyline 25 mg Tablet 50 MG PO (20:02)
[2023-04-21 20:11] LABS: Glucose Point of Care 367 mg/dL (70-110)
[2023-04-22 06:00] VITALS: BP 146/77; PULSE 92; RESP 16; TEMP 36.6; O2SAT 97
--- NOTE | 2023-04-22 08:13 | W.PM.NPUPNS ---
Subjective NPU Subjective: Patient presented today reporting that she is doing fine. She reports that the medication changes have served her well and she feels good with the increase in the lithium last night. We discussed a plan for discharge in the morning and she reported that she was going to make some calls to see if she could get a ride versus needing our assistance. She reports looking forward to getting home and denied any side effects with the medication or any additional issues. Mental Status Exam MSE Comments: This is a morbidly obese white female in hospital scrubs with limited grooming but appropriate eye contact. No abnormal movements except for mild psychomotor retardation. Cooperative with exam in no acute distress. Speech was more normal rate normal volume. Mood described as a little better, affect seems euthymic. Thought process organized. Thought content: Patient denied suicidal or homicidal ideation ,, there were no delusions reported or noted, she denied visual or auditory hallucinations. Attention and concentration was intact and memory appeared mostly reliable but none were formally tested. She is alert and oriented x 3. Insight and judgment limited impulse control limited, but improving. Vitals/I&O/Wt Last Vital Signs Temp 97.8 F 04/22/23 06:00 Pulse 92 04/22/23 06:00 Resp 16 04/22/23 06:00 BP 146/77 04/22/23 06:00 Pulse Ox 97 04/22/23 06:00 O2 Del Method Room Air 04/22/23 06:00 Data NPU 04/17/23 10:39 04/17/23 10:39 A&P Assessment and plan (1) Borderline personality disorder: (2) Post-traumatic stress disorder, chronic: (3) [place] use: (4) Acute psychosis: (5) Depression: (6) History of bipolar disorder: Plan This is a 57-year-old white female with a long history of psychiatric treatment and mental health challenges who presents reporting significant visual hallucinations against the backdrop of a diagnosis of bipolar disorder but not reporting significant manic symptoms but reporting increased depression open to possible medication changes. 1. Continue current medication. Initiated Lexapro 10 mg p.o. daily. 2. Encourage individual, group and milieu therapy. 3. Continue every 15 minute checks for safety. 4. Obtain collateral information. 5. Obtain lithium level. 0.6 first level will recheck and consider increasing. Increase lithium to 900 mg p.o. nightly of the ER. 6. Plan for discharge in the morning. Involuntary Hold Information 96 Hour Hold: 96 Hour Involuntary Admission: Yes 96 Hour Hold Ending Date: 04/23/23 96 Hour Hold Ending Time: 11:08 Attestations NPU Medical Necessity Statement*: Inpatient hospitalization is medically necessary and the clinically appropriate intervention at this time. We will monitor/change medications as indicated. Likely length of stay 1-2 days. Coding Level of Care Code Acute Code for [facility] Diagnoses Borderline personality disorder F60.3 Post-traumatic stress disorder, chronic F43.12 [place] use Z79.899 Acute psychosis F23 Depression F32.A History of bipolar disorder Z86.59
[2023-04-22 08:20] LABS: Glucose Point of Care 252 mg/dL (70-110)
[2023-04-22] MEDS: FUROsemide 20 mg Tablet PO (08:47)
[2023-04-22] MEDS: potassium chloride ER 10 mEq Tablet PO (08:47)
[2023-04-22] MEDS: TRAMadol 50 mg Tablet PO ×4 (08:48→20:05)
[2023-04-22] MEDS: levothyroxine 50 mcg Tablet PO (08:48)
[2023-04-22] MEDS: folic acid 1 mg Tablet PO (08:48)
[2023-04-22] MEDS: atorvastatin 40 mg Tablet PO (08:48)
[2023-04-22] MEDS: multivitamin therapeutic Tablet 1 TAB PO (08:48)
[2023-04-22] MEDS: omega-3 fatty acids 1,000 mg Capsule 1000 MG PO ×2 (08:48→18:32)
[2023-04-22] MEDS: tizanidine 4 mg Tablet PO ×2 (08:48→20:05)
[2023-04-22] MEDS: duloxetine 60 mg Capsule 120 MG PO (08:49)
[2023-04-22] MEDS: escitalopram 10 mg Tablet PO (08:49)
[2023-04-22] MEDS: aspirin 325 mg Tablet PO (08:49)
[2023-04-22] MEDS: isosorbide mononitrate ER 60 mg Tablet 120 MG PO (08:49)
[2023-04-22] MEDS: cyanocobalamin 1,000 mcg Tablet 500 MCG PO (08:49)
[2023-04-22] MEDS: magnesium oxide 400 mg tablet PO ×2 (08:49→18:32)
[2023-04-22] MEDS: cholecalciferol (vitamin D3) 5,000 unit Tablet 10000 UNIT PO (08:49)
[2023-04-22] MEDS: propranolol 20 mg Tablet 30 MG PO ×2 (08:49→18:32)
[2023-04-22] MEDS: insulin lispro 100 unit/1 mL SUBCUT ×3 (08:53→18:01)
[2023-04-22 12:11] LABS: Glucose Point of Care 274 mg/dL (70-110)
[2023-04-22 14:00] VITALS: BP 111/69; PULSE 74; RESP 16; TEMP 36.6; O2SAT 98
[2023-04-22 18:07] LABS: Glucose Point of Care 271 mg/dL (70-110)
[2023-04-22] MEDS: amitriptyline 25 mg Tablet 50 MG PO (20:04)
[2023-04-22] MEDS: lithium carbonate ER 450 mg Tablet 900 MG PO (20:05)
[2023-04-22 20:20] VITALS: BP 151/91; PULSE 76; RESP 18; TEMP 36.4; O2SAT 95
[2023-04-22 20:27] LABS: Glucose Point of Care 393 mg/dL (70-110)
[2023-04-23 06:00] VITALS: BP 180/79; PULSE 86; RESP 15; TEMP 36.9; O2SAT 96
[2023-04-23 08:29] LABS: Glucose Point of Care 326 mg/dL (70-110)
[2023-04-23] MEDS: folic acid 1 mg Tablet PO (08:31)
[2023-04-23] MEDS: escitalopram 10 mg Tablet PO (08:31)
[2023-04-23] MEDS: duloxetine 60 mg Capsule 120 MG PO (08:31)
[2023-04-23] MEDS: multivitamin therapeutic Tablet 1 TAB PO (08:31)
[2023-04-23] MEDS: propranolol 20 mg Tablet 30 MG PO (08:32)
[2023-04-23] MEDS: aspirin 325 mg Tablet PO (08:32)
[2023-04-23] MEDS: cholecalciferol (vitamin D3) 5,000 unit Tablet 10000 UNIT PO (08:32)
[2023-04-23] MEDS: isosorbide mononitrate ER 60 mg Tablet 120 MG PO (08:32)
[2023-04-23] MEDS: cyanocobalamin 1,000 mcg Tablet 500 MCG PO (08:32)
[2023-04-23] MEDS: levothyroxine 50 mcg Tablet PO (08:33)
[2023-04-23] MEDS: TRAMadol 50 mg Tablet PO ×2 (08:34→13:16)
[2023-04-23] MEDS: tizanidine 4 mg Tablet PO (08:34)
[2023-04-23] MEDS: atorvastatin 40 mg Tablet PO (08:34)
[2023-04-23] MEDS: omega-3 fatty acids 1,000 mg Capsule 1000 MG PO (08:34)
[2023-04-23] MEDS: insulin lispro 100 unit/1 mL SUBCUT ×2 (08:49→12:24)
[2023-04-23] MEDS: magnesium oxide 400 mg tablet PO (08:49)
[2023-04-23 12:17] LABS: Glucose Point of Care 323 mg/dL (70-110)
--- NOTE | 2023-04-23 12:51 | W.PM.NPUDCS ---
Diagnoses at Discharge Discharge Diagnosis (1) Borderline personality disorder: Status: Acute (2) Post-traumatic stress disorder, chronic: Status: Chronic (3) [place] use: Status: Acute (4) Acute psychosis: Status: Acute (5) Depression: Status: Acute (6) History of bipolar disorder: Status: Acute Reason for Visit Reason for Visit: psych eval Brief History: History of Present Illness Milena Carter is a 57 year old female who presented to the emergency department with the following report: Chief Complaint: Psychiatric Symptoms Stated Complaint: psych eval Time Seen by Provider: 04/17/23 10:28 Source: patient and EMS Mode of arrival: EMS Limitations: no limitations History of Present Illness: 57-year-old female has a history of bipolar disorder she states that she has had an increased depression she states she has been seeing things she sees things crawling around on the ground she has had some suicidal thoughts no specific plans but states she is severely depressed and just does not feel like living anymore. Patient does want to get help. Associated symptoms: Reports visual hallucinations and depression She was admitted to the neuropsychiatric unit for definitive treatment of those issues.Patient reports experiencing visual hallucinations and severe depression. HISTORY OF THE PRESENT COMPLAINT The patient, a 62-year-old woman, has been taking lithium since 1989 and cannot imagine going without it. She also takes duloxetine, amitriptyline, and Imitrex regularly. She has been experiencing hallucinations for the past three to four weeks, which have been particularly severe. She sees patterns of bugs and other creatures in screw holes and other small spaces, and feels compelled to touch them to confirm they are not real. She also sees a shadowy figure that she describes as a shadow monster , which she has seen her whole life. These hallucinations occur daily, usually in the evening or at night, and are not confined to her own home. The patient's hallucinations have been causing her significant distress and have been disrupting her sleep. She also reported an incident where she thought she saw a dog while driving and stopped to check, only to find nothing there. She believes her lithium levels are off, but it has been a while since they were last checked. The patient also reported that she has been feeling depressed, which she attributes to living alone and the hallucinations. She also mentioned that she gets seasonal depression and usually sits next to a window or in her truck to get sunlight, but it has been too rainy recently for her to do this. She also mentioned that she has been talking faster and louder when around people, which she recognizes as a sign of aranza. The patient has a history of psychiatric hospitalizations, with the most recent one in 1992 due to clanging her antidepressant. She has been on various antidepressants throughout her life, including Prozac, Effexor, and amitriptyline. She reported that amitriptyline works better for her than Trazodone, which gives her night terrors. The patient also reported feeling overwhelmed and has been struggling with her weight since she was a child. She has a history of methamphetamine use, which she used to keep her weight down. She has been clean and sober for 32 years. She also reported that she has type 2 diabetes, has had three heart attacks, has early onset degenerative arthritis, and thyroid problems. The patient reported feeling depressed and not enjoying things as much as she usually does. She also reported feeling like she doesn't matter to people, but denied having any suicidal thoughts. She reported having nightmares but not flashbacks, and denied having any issues with paranoia. She also reported having intrusive thoughts about her health and being alone. MENTAL HEALTH HISTORY Patient has been taking lithium since 1989. Other medications include loxetine, amitriptyline, and Cymbalta. Patient has a history of hallucinations, depression, and bipolar disorder. Patient was hospitalized in 1992 for 21 days due to clanging of antidepressants. SOCIAL HISTORY Patient lives alone and has been in recovery for 32 years, clean and sober. Patient has a history of methamphetamine use. Patient has been four times, with the last passing away due to a heart condition. Per her 07/15/2022 [facility] outpatient psychiatric evaluation: [facility] History and Physical Time In: 02:00 Time Out: 03:00 Chief Complaint: need my medications History of Present Illness: This is a 57-year-old female, she has been a longtime patient at this clinic, was seeing Dr. Sandoval for a number of years, she recently saw Bertha Monique for a one-time appointment and devalued her throughout the session today, her comments on her were she is not the most intelligent person , and later she said she is not the sharpest tool in the shed . She has not seen for nearly a year, and when I asked her why she missed so many appointments during that time she says that they were not seeing patients during [facility], but when I told her that the clinic continue to do phone sessions throughout [facility] she then came up with various other reasons and eventually she said Dr. Sandoval really just wants to see kids and way, I think they were just looking for an excuse to get rid of me . Throughout the session the patient is grandiose but not delusional, she tends to idealize certain providers in her distant past and devalues others. She has clear narcissistic and borderline personality traits, but in reviewing her history, depression and a history PTSD have also and factors. The real question is bipolar disorder. She been on lithium since 1989, she had 1 psychiatric admission in 1992 for 3 weeks. This admission was in the context of when she was suicidal and had a gun in her mouth but says her 5-year-old daughter walked into the closet and stopped her. Not going to argue with a bipolar diagnosis since it has been in place for so long, the most important thing today is that she is fully aware of the risks and benefits of the lithium that she is on. She has been on it for 33 years now, her GFR is 46.5 and that is been trending down and with the combination of poorly controlled diabetes, lithium represents a reasonable risk to her kidney moving forward. 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 Another concern I had is that long-term use of Xanax and physical dependence which she certainly has at this stage. I told her given her age, her chronic medical issues including worsening kidney disease and a history of 3 heart attacks, obesity, I told her long-term use of benzodiazepines represents a danger and would be best to start slowly tapering off of them. She says that she was on a total of 4 mg daily at 1 point. I told her that I would work with her on decreasing the Xanax as she seems fairly neutral about it today. At this time she says she is doing well because no aranza or psychosis, sleep is stable. She has had a history of bulimia in the past but that was many years ago, she also says that she was seeing a weight doctor from the age of 56 years old and was going amphetamines at the age of [age] years old until 18 years old for weight loss to help control weight. She ended up abusing methamphetamine, amphetamines, alcohol and she says other people's pills whenever they were in her earlier years, but she says she is been sober for 32 years now. There is no current suicidal ideations or manic symptoms. History Past Psychiatric History: 1 admission for 3 weeks in 1992, 1 suicide attempt in 1992 when she put a gun in her mouth and her 5-year-old daughter doctor, she denies other history of self-harm but she did have bulimia as a coping strategy for a number of years in addition to substance use. She has been on lithium for 33 years. Family History: She says bipolar disorder goes back 5 generations in her family. Past Medical History: Poorly controlled diabetes, coronary artery disease, hyperlipidemia, fibromyalgia, hypothyroidism Substance Use History: She denies any significant substance use for 32 years. In the past she abused methamphetamine, alcohol, pain pills, and other people's pills wherever they were . Social History: Please see assessment and chart notes for more detail on this as we tended to focus on history today. Hospital Course Hospital Course She slowly acclimated to the individual, group and milieu therapies provided.? She was continued on her current medications with her lithium increased to 900 mg from 750 mg of the ER version and Lexapro 10 mg p.o. was initiated for her depression. She she had resolution of her psychosis and nightmares and depression with the addition of these medications. She worked with the social work team for appropriate discharge planning and aftercare. She had significant improvement and she was able contract for safety outside the hospital prior to discharge.? During the hospitalization, patient had routine laboratory studies which were within normal limits except for few outliers.? Additionally there was a general medical evaluation which was also within normal limits and revealed no new acute processes. At the time of discharge, she denied psychosis or lethality.? Mood and anxiety were well managed.? Patient endorsed a plan to avoid all drugs of abuse and follow-up with the aftercare recommendations of the treatment team.? Patient was evaluated and deemed to be absent credible lethality, and had achieved the maximum benefit from an inpatient hospitalization, so was discharged.? Involuntary Hold Information 96 Hour Hold: 96 Hour Involuntary Admission: Yes 96 Hour Hold Ending Date: 04/23/23 96 Hour Hold Ending Time: 11:08 Mental Status Exam MSE Comments: This is a morbidly obese white female in hospital scrubs with limited grooming but appropriate eye contact. No abnormal movements except for mild psychomotor retardation. Cooperative with exam in no acute distress. Speech was more normal rate normal volume. Mood described as much better, affect was congruent. Thought process organized. Thought content: Patient denied suicidal or homicidal ideation ,, there were no delusions reported or noted, she denied visual or auditory hallucinations. Attention and concentration was intact and memory appeared mostly reliable but none were formally tested. She is alert and oriented x 3. Insight and judgment limited impulse control limited, but improving. Discharge Data Studies Completed and Pending: Laboratory Results WBC 13.52 10^3/uL (3. 29-11.43) H 04/17/23 10:39 RBC 5.23 10^6/uL (3.8 5-5.65) 04/17/23 10:39 Hgb 15.70 g/dL (11.27 -16.99) 04/17/23 10:39 Hct 49.4 % (36-47) H 04/17/23 10:39 MCV 94.5 fl (85-98) 04/17/23 10:39 MCH 30.0 pg (27-33) 04/17/23 10:39 MCHC 31.8 g/dL (30-55) 04/17/23 10:39 RDW 12.6 % (12.1-15.1 ) 04/17/23 10:39 Plt Count 388 10^3/cmm (157 -399) 04/17/23 10:39 MPV 9.8 fL (7.4-10.4) 04/17/23 10:39 Neut % (Auto) 62.3 % 04/17/23 10:39 Lymph % (Auto) 25.0 % 04/17/23 10:39 [place] % (Auto) 6.1 % 04/17/23 10:39 Eos % (Auto) 5.4 % 04/17/23 10:39 Baso % (Auto) 0.9 % 04/17/23 10:39 Neut # (Auto) 8.42 10^3/uL (1.8 -7.7) H 04/17/23 10:39 Lymph # (Auto) 3.4 10^3/uL (0.8- 4.8) 04/17/23 10:39 [place] # (Auto) 0.8 10^3/uL (0.2- 0.9) 04/17/23 10:39 Eos # (Auto) 0.7 10^3/uL (0.0- 0.8) 04/17/23 10:39 Baso # (Auto) 0.1 10^3/uL (0.0- 0.1) 04/17/23 10:39 Nucleated RBC % (a uto) 0 % 04/17/23 10:39 Nucleated RBCs # 0.0 /100WBC 04/17/23 10:39 Sodium 141 mmol/L (136-1 45) 04/17/23 10:39 Potassium 3.6 mmol/L (3.5-5 .1) 04/17/23 10:39 Chloride 102 mmol/L (98-10 7) 04/17/23 10:39 Carbon Dioxide 26 mmol/L (22-29) 04/17/23 10:39 Anion Gap 16.6 (5-19) 04/17/23 10:39 BUN 10 mg/dL (6-20) 04/17/23 10:39 Creatinine 1.4 mg/dL (0.5-0. 9) H 04/17/23 10:39 GFR Calculation 38.9 mL/min (90-1 30) L 04/17/23 10:39 Glucose 97 mg/dL (65-115) 04/17/23 10:39 POC Glucose 323 mg/dL (70-110 ) H 04/23/23 12:14 Estimat Average Gl ucose 160 04/17/23 10:39 Hemoglobin A1c 7.2 % (4.0-6.0) H 04/17/23 10:39 Calculated Osmolal ity 291 mOsm/kg (285- 295) 04/17/23 10:39 Calcium 10.4 mg/dL (8.5-1 0.5) 04/17/23 10:39 Total Bilirubin 0.3 mg/dL (0.15-1 .2) 04/17/23 10:39 AST 17 U/L (0-32) 04/17/23 10:39 ALT 15 U/L (0-33) 04/17/23 10:39 Alkaline Phosphata se 99 U/L (35-105) 04/17/23 10:39 Total Protein 8.0 g/dL (6.6-8.7 ) 04/17/23 10:39 Albumin 3.9 g/dL (3.5-5.2 ) 04/17/23 10:39 Globulin 4.1 g/dL (1.3-4.6 ) 04/17/23 10:39 TSH 2.23 uIU/mL (0.27 -4.20) 04/17/23 10:39 Salicylates < 0.3 mg/dL (3-10 ) L 04/17/23 10:39 Urine Opiates Scre en Negative ng/mL (N egative) 04/17/23 12:23 Acetaminophen < 5.0 ug/mL (10-3 0) L 04/17/23 10:39 Ur Barbiturates Sc reen Negative ng/mL (N egative) 04/17/23 12:23 Ur Phencyclidine S crn Negative ng/mL (N egative) 04/17/23 12:23 Ur Amphetamines Sc reen Negative ng/mL (N egative) 04/17/23 12:23 U Benzodiazepines Scrn Negative ng/mL (N egative) 04/17/23 12:23 [place] 0.7 mmol/L (0.6-1 .2) 04/20/23 08:40 Urine Cocaine Scre en Negative ng/mL (N egative) 04/17/23 12:23 U Marijuana (THC) Screen Negative ng/mL (N egative) 04/17/23 12:23 Ethyl Alcohol < 10 mg/dL (0-10) 04/17/23 10:39 Vitals: Last Vital Signs Temp 98.4 F 04/23/23 06:00 Pulse 86 04/23/23 06:00 Resp 15 04/23/23 06:00 BP 180/79 04/23/23 06:00 Pulse Ox 96 04/23/23 06:00 O2 Del Method Room Air 04/23/23 06:00 Discharge Plan Discharge Patient Disposition: Home Condition: Stable Prescriptions: New lithium carbonate 450 mg Tablet Extended Release 900 mg PO BEDTIME 30 Days Qty: 60 1RF escitalopram oxalate 10 mg Tablet 10 mg PO DAILY 30 Days Qty: 30 1RF Continued aspirin 325 mg tablet 325 mg PO DAILY calcium citrate 250 mg calcium tablet 250 mg PO DAILY cholecalciferol (vitamin D3) 250 mcg (10,000 unit) capsule 10,000 unit PO DAILY chromium picolinate 200 mcg tablet 200 mcg PO DAILY coenzyme Q10 [Co Q-10] 400 mg capsule 400 mg PO DAILY biotin 1 mg capsule 1 mg PO DAILY mecobalamin (vitamin B12) 1,000 mcg tablet,disintegrating 500 mcg sublingual DAILY Rx Instructions: place tablet under tongue and allow to dissolve for at least30 secs before swallowing multivitamin Tablet 1 tab PO DAILY (DME) insulin syringe-needle U-100 [BD Insulin Syringe] 1 mL 27 gauge x 1/2 syringe See Rx Instructions .Route Qty: 100 0RF Rx Instructions: As directed cholecalciferol (vitamin D3) 1,250 mcg (50,000 unit) capsule 50,000 unit PO .Monthly Qty: 1 2RF folic acid 1 mg tablet 1 mg PO DAILY Qty: 30 2RF (DME) lancets [LiberataTouch Delica Plus Lancet] 33 gauge misc See Rx Instructions .Route Qty: 100 0RF Rx Instructions: one three times daily (DME) OneTouch Ultra Test Strip See Rx Instructions .Route Qty: 50 5RF Rx Instructions: one strip three times daily tizanidine 4 mg tablet 4 mg PO TID rosuvastatin [Crestor] 10 mg tablet 10 mg PO DAILY Qty: 90 3RF propranolol 60 mg tablet 30 mg PO BID Qty: 90 3RF isosorbide mononitrate 120 mg tablet extended release 24 hr 120 mg PO QAM Qty: 90 3RF nitroglycerin [Nitrostat] 0.4 mg tablet, sublingual 0.4 mg SUBLINGUAL Q5M PRN (Reason: chest pain) Qty: 25 5RF duloxetine [Cymbalta] 60 mg capsule,delayed release(DR/EC) 120 mg PO DAILY Qty: 60 4RF (DME) blood-glucose meter [DataPromuch Ultra2 Meter] Kit See Rx Instructions .Route Qty: 1 0RF Rx Instructions: As directed glipizide 5 mg tablet extended release 24hr 5 mg PO DAILY Qty: 30 0RF levocetirizine 5 mg tablet 5 mg PO DAILY Qty: 30 0RF levothyroxine [Synthroid] 50 mcg tablet 50 mcg PO DAILY Qty: 30 0RF magnesium oxide 400 mg (241.3 mg magnesium) tablet 400 mg PO BID Qty: 60 0RF Fish Oil 1,000 mg (120 mg-180 mg) Capsule 1 cap PO BID potassium chloride 10 mEq capsule, extended release 10 meq PO EVERY OTHER DAY tramadol 50 mg tablet 50 mg PO QID amitriptyline 50 mg tablet 50 mg PO BEDTIME Lasix 20 mg tablet 20 mg PO EVERY OTHER DAY Discontinued lithium carbonate 450 mg tablet extended release See Rx Instructions .ROUTE .COMPLEX Qty: 30 4RF Dose Instruction: TAKE 1 TABLET BY MOUTH AT BEDTIME (TAKE WITH 300MG DOSE FOR TOTAL DAILY DOSE OF 750MG) Rx Instructions: TAKE 1 TABLET BY MOUTH AT BEDTIME (TAKE WITH 300MG DOSE FOR TOTAL DAILY DOSE OF 750MG) lithium carbonate 300 mg tablet extended release 300 mg PO BEDTIME Rx Instructions: take with 450mg dose for total daily dose of 750mg No Action Victoza 3-Tree 0.6 mg/0.1 mL (18 mg/3 mL) pen injector 1.2 mg SUBCUT DAILY Qty: 9 0RF Discharge Orders: Discharge Order (Routine); Ordered 04/23/23 Ordered By: Fredy Tucker Referrals: Berhta Monique PMHNP [Staff Physician] - 05/01/23 10:15 am Jamin Egan, [employer] AND REPA[employer]ER-[employer] [Primary Care Provider] - Discharge Diet: Regular Discharge Activity: Resume usual activity Patient Instructions: Opioid Safety Discharge Attestations NPU Time Spent in Discharge Care*: less than 30 min Specific Discharge Activities: Specific discharge activities: educating patient, discussing with case finisher/social workers/dc planners, documenting/other paperwork and evaluating patient/reviewing data Coding Level of Care Code Acute Code for [facility] Diagnoses Borderline personality disorder F60.3 Post-traumatic stress disorder, chronic F43.12 [place] use Z79.899 Acute psychosis F23 Depression F32.A History of bipolar disorder Z86.59
[2023-04-23 13:06] VITALS: BP 180/79; PULSE 86; RESP 15; TEMP 36.9; O2SAT 96
== END 2023-04-23 13:22 | disposition home or self-care (01) | DRG 885 ==
LOC: ER 11:43 → NP 11:45
PROVIDERS: Family Medicine; Admitting Provider Psychiatry & Neurology Psychiatry; Emergency Provider Emergency Medicine; PCP Nurse Practitioner; Visit Provider Psychiatry & Neurology Psychiatry
DX: F23 Brief psychotic disorder (principal); Z68.42 Body mass index [BMI] 45.0-49.9, adult; F60.3 Borderline personality disorder; F43.12 Post-traumatic stress disorder, chronic; Z79.899 Other long term (current) drug therapy; F31.5 Bipolar disorder, current episode depressed, severe, with psychotic features; E11.22 Type 2 diabetes mellitus with diabetic chronic kidney disease; N18.30 Chronic kidney disease, stage 3 unspecified; Z79.4 Long term (current) use of insulin; Z79.84 Long term (current) use of oral hypoglycemic drugs; Z79.85 Long-term (current) use of injectable non-insulin antidiabetic drugs; E03.9 Hypothyroidism, unspecified; E66.01 Morbid (severe) obesity due to excess calories; M19.90 Unspecified osteoarthritis, unspecified site; E78.5 Hyperlipidemia, unspecified; F41.9 Anxiety disorder, unspecified; Z79.82 Long term (current) use of aspirin
CPT/HCPCS: 36415; 36416; 80053; 80178; 80306; 80307; 82962; 83036; 84443; 85025; 96372; 97150; 97165; 99285; J1815

== ENCOUNTER → 2023-05-22 13:37 | Outpatient (BNVA) | payer MEDICAID, SELFPAY ==
[2023-04-29 10:58] VITALS: BP 150/88; BMI 45.2
== END ==
PROVIDERS: PCP Nurse Practitioner; Visit Provider Nurse Practitioner
DX: E11.65 Type 2 diabetes mellitus with hyperglycemia (principal); E03.8 Other specified hypothyroidism; Z79.4 Long term (current) use of insulin
CPT/HCPCS: 80053; 80061; 83036; 84443

== ENCOUNTER → 2023-07-21 13:15 | Outpatient (BNVA) | payer SELFPAY ==
[2023-05-27 13:40] VITALS: BP 135/85; BMI 45.0
== END ==
PROVIDERS: PCP Nurse Practitioner; Visit Provider Nurse Practitioner
DX: E11.65 Type 2 diabetes mellitus with hyperglycemia (principal); Z79.4 Long term (current) use of insulin
CPT/HCPCS: 81000

== ENCOUNTER → 2023-08-29 11:35 | Outpatient (BNVA) | payer SELFPAY ==
[2023-05-27 13:40] VITALS: BP 135/85; BMI 45.0
== END ==
PROVIDERS: PCP Nurse Practitioner; Visit Provider Nurse Practitioner
DX: E11.65 Type 2 diabetes mellitus with hyperglycemia (principal); Z79.4 Long term (current) use of insulin
CPT/HCPCS: 80053; 80061; 82043; 83036

== ENCOUNTER → 2023-12-16 11:17 | Outpatient (BNVA) | payer MEDICAID, SELFPAY ==
[2023-09-19 11:38] VITALS: BP 178/88; BMI 47.6
== END ==
PROVIDERS: PCP Nurse Practitioner; Visit Provider Nurse Practitioner
DX: E11.65 Type 2 diabetes mellitus with hyperglycemia (principal); Z79.4 Long term (current) use of insulin
CPT/HCPCS: 80053; 80061; 81000; 82043; 82607; 83036; 84443; 85025

== ENCOUNTER 2024-01-05 19:10 | Emergency (ER) | payer MEDICAID, SELFPAY ==
[2023-09-19 11:38] VITALS: BP 178/88; BMI 47.6
[2024-01-05 19:11] VITALS: BP 148/117; PULSE 85; RESP 20; TEMP 36.7; O2SAT 95; BMI 45.0
[2024-01-05 19:20] LABS: Glucose Point of Care 579 mg/dL (70-110)
[2024-01-05 19:27] VITALS: BP 156/104; PULSE 76; RESP 18; O2SAT 93
[2024-01-05 19:39] LABS: Basophils # 0.1 10^3/uL (0.0-0.1); Basophils % 0.9 %; Eosinophils # 0.3 10^3/uL (0.0-0.8); Eosinophils % 3.3 %; Hematocrit 43.2 % (36-47); Lymphocytes # 2.2 10^3/uL (0.8-4.8); Lymphocytes % 25.7 %; Mean Corpuscular HGB Conc 33.1 g/dL (30-55); Mean Corpuscular Hemoglobin 29.4 pg (27-33); Mean Corpuscular Volume 88.7 fl (85-98); Mean Platelet Volume 10.8 fL (7.4-10.4); Monocytes # 0.5 10^3/uL (0.2-0.9); Monocytes % 5.6 %; Neutrophils % 64.3 %; Nucleated Red Blood Cells % 0 %; Platelet Count 357 10^3/cmm (157-399); Red Blood Count 4.87 10^6/uL (3.85-5.65); Red Cell Distribution Width 11.9 % (12.1-15.1); White Blood Count 8.56 10^3/uL (3.29-11.43)
[2024-01-05] MEDS: sodium chloride 0.9% 1,000 ML 999 ML IV (19:40)
[2024-01-05] MEDS: insulin regular-human 100 units/1 mL 15 UNIT IVP ×2 (19:41→21:11)
--- NOTE | 2024-01-05 19:41 | ED_ITS ---
HPI - General Adult 2 General: Chief complaint: General Medical Stated complaint: HIGH BLOOD SUGAR Time Seen by Provider: 01/05/24 19:13 History of Present Illness: 58-year-old female with a history of liz gerardoes multiple psychiatric issues hypertension, hyperlipidemia and morbid obesity who presents to the emergency room with hyperglycemia by ambulance. She says she has been to her doctor and to the pharmacy multiple times and still cannot get her insulin after a week of being without it. She said she has had increased thirst. Increased urination. She says she feels a little bit foggy. No focal motor deficits. No increased work of breathing. Blood glucose is over 600 on presentation. Related Data Home Medications Medication Instructions Recorded Confirmed biotin 1 mg capsule 1 mg PO DAILY 08/15/20 12/26/23 mecobalamin (vitamin B12) 1,000 500 mcg sublingual DAILY 08/15/20 12/26/23 mcg disintegrating tablet,sublingual aspirin 325 mg tablet 325 mg PO DAILY 07/16/22 12/26/23 calcium citrate 250 mg PO DAILY 07/16/22 12/26/23 cholecalciferol (vitamin D3) 250 10,000 unit PO DAILY 07/16/22 12/26/23 mcg (10,000 unit) capsule chromium picolinate 200 mcg tablet 200 mcg PO DAILY 07/16/22 12/26/23 coenzyme Q10 400 mg capsule (Co 400 mg PO DAILY 07/16/22 12/26/23 Q-10) multivitamin 1 tab PO DAILY 07/16/22 12/26/23 omega [id number] oil 1,000 mg 1 cap PO BID 04/17/23 12/26/23 (120 mg-180 mg) capsule (Fish Oil) Previous Rx's Medication Instructions Recorded blood-glucose meter (PeerflixTouch #1 ea 07/08/21 Ultra2 Meter kit) blood sugar diagnostic (OneTouch #50 ea 04/11/22 Ultra Test strips) insulin syringe-needle U-100 1 mL #100 ea 12/25/22 27 gauge x 1/2 (BD Insulin Syringe) lancets 33 gauge (OneTouch Delica #100 ea 12/25/22 Plus Lancet) isosorbide mononitrate 120 mg 120 mg PO QAM #90 tabs 01/14/23 tablet,extended release 24 hr nitroglycerin 0.4 mg sublingual 0.4 mg sublingual Q5M PRN chest 01/14/23 tablet (Nitrostat) pain #25 tabs lithium carbonate 450 mg 900 mg (2 x 450 mg) PO BEDTIME 30 07/17/23 tablet,extended release days #60 tabs nystatin 100,000 unit/gram topical 1 applic topical BID yeast #30 09/03/23 cream grams amitriptyline 50 mg tablet 50 mg PO BEDTIME #30 tabs 10/13/23 duloxetine 60 mg capsule,delayed 120 mg (2 x 60 mg) PO DAILY #60 11/12/23 release (Cymbalta) caps escitalopram oxalate 10 mg tablet 10 mg PO DAILY 30 days #30 tabs 11/21/23 cholecalciferol (vitamin D3) 1,250 50,000 unit PO .Monthly #1 cap 12/26/23 mcg (50,000 unit) capsule fenofibrate nanocrystallized 145 145 mg PO DAILY #30 tabs 12/26/23 mg tablet (Tricor) flash glucose scanning reader #1 ea 12/26/23 (FreeStyle Jeanmarie 2 [place]) flash glucose sensor (FreeStyle #2 ea 12/26/23 Jeanmarie 2 Sensor kit) folic acid 1 mg tablet 1 mg PO DAILY #30 tabs 12/26/23 furosemide 20 mg tablet (Lasix) 20 mg PO EVERY OTHER DAY #30 tabs 12/26/23 glipizide 5 mg tablet, extended 5 mg PO DAILY #30 tabs 12/26/23 release 24 hr insulin glargine U-300 conc 300 85 unit (0.2833 mL) SUBCUT DAILY 12/26/23 unit/mL (3 mL) subcutaneous pen #6 mL (Toujeo Max U-300 SoloStar) levocetirizine 5 mg tablet 5 mg PO DAILY #30 tabs 12/26/23 levothyroxine 75 mcg tablet 75 mcg PO DAILY #30 tabs 12/26/23 magnesium oxide 400 mg (241.3 mg 800 mg (2 x 400 mg (241.3 mg 12/26/23 magnesium) tablet magnesium)) PO BID #120 tabs potassium chloride 10 mEq 10 meq PO EVERY OTHER DAY #30 caps 12/26/23 capsule,extended release propranolol 60 mg tablet 30 mg (1/2 x 60 mg) PO BID #30 tabs 12/26/23 rosuvastatin 10 mg tablet 10 mg PO DAILY #30 tabs 12/26/23 semaglutide 0.25 mg or 0.5 mg (2 0.5 mg (0.736 mL) SUBCUT .week #3 12/26/23 mg/3 mL) subcutaneous pen injector mL (Ozempic) tizanidine 4 mg tablet 4 mg PO TID muscle spasticity #90 12/26/23 tabs tramadol 50 mg tablet 50 mg PO Q6H #120 tabs 12/26/23 sulfamethoxazole 800 1 tab PO BID 7 days #14 tabs 01/05/24 mg-trimethoprim 160 mg tablet (Bactrim DS) Allergies Allergy/AdvReac Type Severity Reaction Status Date / Time jacobo pepper [green pepper] Allergy Unknown Unknown Verified 01/05/24 19:17 oats Allergy Unknown Unknown Verified 01/05/24 19:17 No Known Drug Allergies Allergy Unknown Verified 01/05/24 19:17 Review of Systems 2 Narrative: Constitutional symptoms: Negative except as documented in HPI. Skin symptoms: Negative except as documented in HPI. Eye symptoms: Negative except as documented in HPI. ENMT symptoms: Negative except as documented in HPI. Respiratory symptoms: Negative except as documented in HPI. Cardiovascular symptoms: Negative except as documented in HPI. Gastrointestinal symptoms: Negative except as documented in HPI. Genitourinary symptoms: Negative except as documented in HPI. Musculoskeletal symptoms: Negative except as documented in HPI. Neurologic symptoms: Negative except as documented in HPI. Psychiatric symptoms: Negative except as documented in HPI. Endocrine symptoms: Negative except as documented in HPI. PFSH ED 2 PFSH: Medical History [place] use DM type 2 causing CKD stage 3 Diabetes mellitus with hyperglycemia, with long-term current use of insulin Narcissistic personality disorder Borderline personality disorder Post-traumatic stress disorder, chronic Bipolar 1 disorder Allergic rhinitis due to pollen Diabetes History of abnormal cervical Pap smear (~2010) History of mammogram (~2015) Bipolar disorder PTSD (post-traumatic stress disorder) Fibromyalgia Chronic anxiety GERD (gastroesophageal reflux disease) Adult onset hypothyroidism Hyperlipidemia ASHD (arteriosclerotic heart disease) Morbid obesity Surgical History History of tubal ligation (~2002) History of colonoscopy (~10/2018) History of esophagogastroduodenoscopy (EGD) (~10/2018) History of colon polyps Family History Mother Hypertension Other Borderline personality disorder Cancer Denies family history of Anesthesia complication Bleeding disorder Social History Smoking and tobacco/nicotine status: former use of tobacco/nicotine Quit status (tobacco/nicotine): has quit using Year quit tobacco: 2017 Second hand smoke exposure: No Alcohol intake: former Year of sobriety/quit date alcohol: 1990 Substance/Drug Use: former Date of last use: 01.07.91 Adopted: No Caregiver/support person: Yes (Nurse on Wednesdays, aide comes in for 3 hours 3 days a week) Lives independently: Yes Household members: none Housing: House Marital status: / Marital status details: in 2010 Number of children: 3 Number of grandchildren: 8 Highest education level completed: Associate Degree: Academic Program Education level details: ADN service: No Current occupational status: disabled Current occupational exposures/hazards: No Pets and animals: Yes Pets & animals: cat(s) Leisure activites: music, reading and other Leisure activities details: watch TV, sew, take care of house plants Sexually active: No Do you think of yourself as: Straight/Heterosexual Current gender identity: Female Padmini/Shinto: Quaker Special padmini needs: No Agree to transfusion: Yes Female Reproductive History: Para: 3 Spontaneous abortions: Yes (1) Physical Exam 2 Narrative: EXAM NARRATIVE: General: Alert, no acute distress. Skin: Warm, dry. Head: Normocephalic, atraumatic. Neck: Supple, trachea midline. Eye: Extraocular movements are intact. Ears, nose, mouth and throat: Tacky oral mucosa Cardiovascular: Regular, Normal peripheral perfusion. Respiratory: Lungs are clear to auscultation, respirations are non-labored, breath sounds are equal, Symmetrical chest wall expansion. Gastrointestinal: Soft, Nontender, Non distended Musculoskeletal: Normal ROM, no deformity. Neurological: Alert and oriented, No focal neurological deficit observed. Psychiatric: Cooperative, appropriate mood & affect. Course 2 Vital Signs: Vital signs: Vital Signs Temperature 98.0 F 01/05/24 19:11 Pulse Rate 69 01/05/24 22:10 Respiratory Rate 18 01/05/24 22:10 Blood Pressure 110/89 01/05/24 21:17 Pulse Oximetry 93 01/05/24 22:10 Oxygen Delivery Me thod Room Air 01/05/24 22:10 MDM - General Adult Medical Decision Making Medical decision making: Differential diagnosis for the patient with hyperglycemia would include but not be limited to and would be based on the above HPI review of systems and physical exam: DKA. Dehydration. Renal failure. Concern for electrolyte abnormalities. Concern for underlying infection that might result in hyperglycemia. Medical non-compliance Orders placed to evaluate differential diagnosis of the patient with hyperglycemia are based on the above differential, HPI and physical exam. Lab Review: Laboratory results were reviewed and interpreted by myself the emergency room physician. No leukocytosis. No anemia. Mild elevation in BUN and creatinine at 16 and 1.3 however this is her baseline. Blood glucose is 585. Urine shows slight infection. I reviewed the patient's medical record. Reexamination: Patient remained stable. No increased work of breathing. No altered mental status. No focal motor deficits. Assessment and plan: Hyperglycemia Dehydration Urinary tract infection -Normal saline bolus and 215 unit insulin doses. Blood glucose is improved down into the 200s. IV Rocephin in the emergency room as well. - Discharged home - Discussed plan with patient. Answered any questions. - Evaluation and treatment of this problem were appropriate in the emergency setting. Lab Data 01/05/24 19:22 01/05/24 19:22 Laboratory Results WBC 8.56 10^3/uL (3.29-11.43) 01/05/24 19: RBC 4.87 10^6/uL (3.85-5.65) 01/05/24 19: Hgb 14.30 g/dL (11.27-16.99) 01/05/24 19: Hct 43.2 % (36-47) 01/05/24 19: MCV 88.7 fl (85-98) 01/05/24 19: MCH 29.4 pg (27-33) 01/05/24: MCHC 33.1 g/dL (30-55) 01/05/24 19: RDW 11.9 % (12.1-15.1) L 01/05/24 19: Plt Count 357 10^3/cmm (157-399) 01/05/24 19: MPV 10.8 fL (7.4-10.4) H 01/05/24 19: Neut % (Auto) 64.3 % 01/05/24 19: Lymph % (Auto) 25.7 % 01/05/24 19: [place] % (Auto) 5.6 % 01/05/24 19:22 Eos % (Auto) 3.3 % 01/05/24 19:22 Baso % (Auto) 0.9 % 01/05/24: Neut # (Auto) 5.50 10^3/uL (1.8-7.7) 01/05/24: Lymph # (Auto) 2.2 10^3/uL (0.8-4.8) 01/05/24 19: [place] # (Auto) 0.5 10^3/uL (0.2-0.9) 01/05/24 19:22 Eos # (Auto) 0.3 10^3/uL (0.0-0.8) 01/05/24 19: Baso # (Auto) 0.1 10^3/uL (0.0-0.1) 01/05/24: Nucleated RBC % (auto) 0 % 01/05/24: Nucleated RBCs # 0.0 /100WBC 01/05/24:22 Specimen Type Arterial 01/05/24 19:55 Sample Site Radial, right 01/05/24 19:55 ABG pH 7.41 (7.35-7.45) 01/05/24 19:55 ABG pCO2 32.4 mmHg (35-45) L 01/05/24 19:55 ABG pO2 85.1 mmHg (80.0-100.0) 01/05/24 19:55 ABG PO2/FiO2 Ratio 405 01/05/24 19:55 ABG HCO3 20.4 mmol/L (22-26) L 01/05/24 19:55 ABG O2 Saturation 97.1 01/05/24 19:55 ABG Base Excess -3.3 mmol/L (-2.0-2.0) L 01/05/24 19:55 Cornelio Test Pos 01/05/24 19:55 A-a O2 Gradient 3.1 mmHg (5-10) L 01/05/24 19:55 Hematocrit 43.5 % (37-47) 01/05/24 19:55 Hgb O2 Saturation 95.3 % (95-100) 01/05/24 19:55 Carboxyhemoglobin 0.7 %THgb (0.4-20.1) 01/05/24 19:55 Methemoglobin 1.1 % (0.4-1.5) 01/05/24 19:55 Total Hemoglobin 14.2 g/dL (12-16) 01/05/24 19:55 Sodium 137.0 mmol/L (131-143) 01/05/24 19:55 Potassium 3.0 mmol/L (3.5-5.0) L 01/05/24 19:55 Glucose 557.0 mg/dL (70-115) H 01/05/24 19:55 Ionized Calcium 1.2 mmol/L (1.1-1.4) 01/05/24 19:55 O2 Delivery Device Room air 01/05/24 19:55 FiO2 21.0 % 01/05/24 19:55 Client Experience Consultant ID Ed 01/05/24 19:55 Sodium 131 mmol/L (136-145) L 01/05/24 19:22 Potassium 4.0 mmol/L (3.5-5.1) 01/05/24 19:22 Chloride 97 mmol/L (98-107) L 01/05/24 19:22 Carbon Dioxide 22 mmol/L (22-29) 01/05/24 19:22 Anion Gap 16.0 (5-19) 01/05/24 19:22 BUN 16 mg/dL (6-20) 01/05/24 19:22 Creatinine 1.3 mg/dL (0.5-0.9) H 01/05/24 19:22 GFR Calculation 42.2 mL/min (90-130) L 01/05/24 19:22 Glucose 585 mg/dL (65-115) H* 01/05/24 19:22 POC Glucose 291 mg/dL (70-110) H 01/05/24 22:08 Calculated Osmolality 300 mOsm/kg (285-295) H 01/05/24 19:22 Calcium 9.6 mg/dL (8.5-10.5) 01/05/24 19:22 Total Bilirubin 0.2 mg/dL (0.15-1.2) 01/05/24 19:22 AST 12 U/L (0-32) 01/05/24 19:22 ALT 21 U/L (0-33) 01/05/24 19:22 Alkaline Phosphatase 131 U/L (35-105) H 01/05/24 19:22 Total Protein 7.5 g/dL (6.6-8.7) 01/05/24 19:22 Albumin 4.2 g/dL (3.5-5.2) 01/05/24 19: Globulin 3.3 g/dL (1.3-4.6) 01/05/24 19:22 Urine Color Yellow (Yellow) 01/05/24 19:37 Urine Appearance Clear (CLEAR) 01/05/24 19:37 Urine pH 7.0 (5-7) 01/05/24 19:37 Ur Specific Mineral 1.021 (1.005-1.030) 01/05/24 19:37 Urine Protein Negative (Negative) 01/05/24 19:37 Urine Glucose (UA) 3+ (Normal) H 01/05/24 19:37 Urine Ketones Negative (Negative) 01/05/24 19:37 Urine Blood Negative (Negative) 01/05/24 19:37 Urine Nitrate Negative (Negative) 01/05/24 19:37 Urine Bilirubin Negative (Negative) 01/05/24 19:37 Urine Urobilinogen 0.2 mg/dL (Negative) 01/05/24 19:37 Ur Leukocyte Esterase Negative (Negative) 01/05/24 19:37 Urine RBC 0-2 /hpf (0-2) 01/05/24 19:37 Urine WBC 11-20 /hpf (0-5) H 01/05/24 19:37 Ur Squamous Epith Cells 0-5 /hpf (0-5) 01/05/24 19:37 Amorphous Sediment Not Reportable 01/05/24 19:37 Urine Bacteria None seen /hpf (NONE) 01/05/24 19:37 Hyaline Casts 0.40 /lpf 01/05/24 19:37 Serum Ketones Negative (Negative) 01/05/24 19:22 No radiology studies performed this visit Discharge Plan Discharge Patient Disposition: Home Clinical Impression: Hyperglycemia, UTI (urinary tract infection), Dehydration Condition: Stable Prescriptions: New sulfamethoxazole-trimethoprim [Bactrim DS] 800-160 mg tablet 1 tab PO BID 7 Days Qty: 14 0RF No Action aspirin 325 mg tablet 325 mg PO DAILY calcium citrate 250 mg calcium tablet 250 mg PO DAILY cholecalciferol (vitamin D3) 250 mcg (10,000 unit) capsule 10,000 unit PO DAILY chromium picolinate 200 mcg tablet 200 mcg PO DAILY coenzyme Q10 [Co Q-10] 400 mg capsule 400 mg PO DAILY biotin 1 mg capsule 1 mg PO DAILY mecobalamin (vitamin B12) 1,000 mcg tablet,disintegrating 500 mcg sublingual DAILY Rx Instructions: place tablet under tongue and allow to dissolve for at least30 secs before swallowing multivitamin Tablet 1 tab PO DAILY (DME) insulin syringe-needle U-100 [BD Insulin Syringe] 1 mL 27 gauge x 1/2 syringe See Rx Instructions .Route Qty: 100 0RF Rx Instructions: As directed (DME) lancets [OneTouch Delica Plus Lancet] 33 gauge misc See Rx Instructions .Route Qty: 100 0RF Rx Instructions: one three times daily (DME) OneTouch Ultra Test Strip See Rx Instructions .Route Qty: 50 5RF Rx Instructions: one strip three times daily isosorbide mononitrate 120 mg tablet extended release 24 hr 120 mg PO QAM Qty: 90 3RF nitroglycerin [Nitrostat] 0.4 mg tablet, sublingual 0.4 mg SUBLINGUAL Q5M PRN (Reason: chest pain) Qty: 25 5RF nystatin 100,000 unit/gram cream 1 applic TOPICAL BID Qty: 30 0RF Ozempic 0.25 mg or 0.5 mg (2 mg/3 mL) pen injector 0.5 mg SUBCUT .week Qty: 3 0RF cholecalciferol (vitamin D3) 1,250 mcg (50,000 unit) capsule 50,000 unit PO .Monthly Qty: 1 2RF fenofibrate nanocrystallized [Tricor] 145 mg tablet 145 mg PO DAILY Qty: 30 2RF folic acid 1 mg tablet 1 mg PO DAILY Qty: 30 2RF Lasix 20 mg tablet 20 mg PO EVERY OTHER DAY Qty: 30 2RF glipizide 5 mg tablet extended release 24hr 5 mg PO DAILY Qty: 30 2RF Toujeo Max U-300 SoloStar 300 unit/mL (3 mL) insulin pen 85 unit SUBCUT DAILY Qty: 6 0RF magnesium oxide 400 mg (241.3 mg magnesium) tablet 800 mg PO BID Qty: 120 2RF potassium chloride 10 mEq capsule, extended release 10 meq PO EVERY OTHER DAY Qty: 30 2RF propranolol 60 mg tablet 30 mg PO BID Qty: 30 2RF rosuvastatin 10 mg tablet 10 mg PO DAILY Qty: 30 2RF tizanidine 4 mg tablet 4 mg PO TID Qty: 90 2RF tramadol 50 mg tablet 50 mg PO Q6H Qty: 120 2RF levothyroxine 75 mcg tablet 75 mcg PO DAILY Qty: 30 2RF Rx Instructions: dose increase levocetirizine 5 mg tablet 5 mg PO DAILY Qty: 30 2RF (DME) FreeStyle Jeanmarie 2 [place] Misc See Rx Instructions .ROUTE .MEDSUPPLY Qty: 1 0RF Rx Instructions: As directed (DME) FreeStyle Jeanmarie 2 Sensor Kit See Rx Instructions .ROUTE .MEDSUPPLY Qty: 2 11RF Rx Instructions: change every 14 days (DME) blood-glucose meter [OneTouch Ultra2 Meter] Kit See Rx Instructions .Route Qty: 1 0RF Rx Instructions: As directed lithium carbonate 450 mg tablet extended release 900 mg PO BEDTIME 30 Days Qty: 60 2RF amitriptyline 50 mg tablet 50 mg PO BEDTIME Qty: 30 2RF duloxetine [Cymbalta] 60 mg capsule,delayed release(DR/EC) 120 mg PO DAILY Qty: 60 2RF escitalopram oxalate 10 mg tablet 10 mg PO DAILY 30 Days Qty: 30 2RF Fish Oil 1,000 mg (120 mg-180 mg) Capsule 1 cap PO BID Discharge Orders: Discharge ED (Routine); Ordered 01/05/24 Ordered By: Kirstie Morejon Referrals: Jamin Egan, AUDRAC [Primary Care Provider] - Patient Instructions: Urinary Tract Infection in Women (ED), Diabetic Hyperglycemia (ED) Activity Restrictions/Additional Instructions: Need to talk with your primary care provider tomorrow about getting your insulin Thank you for choosing [facility] for your healthcare needs today. Please realize this is an emergency room and that we are providing you with a medical screening exam and this may not be complete and all inclusive of all the testing and or work up that you may need to determine your ailment or severity of your illness. You have been screened and evaluated and felt safe for discharge. Health conditions do change or evolve sometimes and as such it is important that you follow up with your Primary Doctor to be re checked, 3-5 days is a general good time frame for follow up. You are always welcome to return to the ED for re assessment if your symptoms are worsening or you have new concerns Coding Level of Care Code ED Retina Subspecialist for Neymar Castro
[2024-01-05 19:48] LABS: Bilirubin Urine Negative (Negative); Blood Urine Negative (Negative); Glucose Urine UA 3+ (Normal); Ketones Urine Negative (Negative); Leukocyte Esterase Urine Negative (Negative); Nitrate Urine Negative (Negative); Protein Urine Negative (Negative); Specific Gravity, Urine 1.021 (1.005-1.030); Urine Appearance Clear (CLEAR); Urine Color Yellow (Yellow); Urobilinogen Urine 0.2 mg/dL (Negative)
[2024-01-05 19:50] LABS: Ketone (Acetest) Serum Negative (Negative)
[2024-01-05 19:53] LABS: Bacteria Urine None Seen /hpf; RBC Urine 0-2 /hpf (0-2); Squamous Epithelial Cell Urine 0-5 /hpf (0-5)
[2024-01-05 19:56] LABS: Alanine Aminotransferase 21 U/L (0-33); Albumin Level 4.2 g/dL (3.5-5.2); Alkaline Phosphatase 131 U/L (35-105); Aspartate Amino Transferase 12 U/L (0-32); Blood Urea Nitrogen 16 mg/dL (6-20); Calcium 9.6 mg/dL (8.5-10.5); Carbon Dioxide 22 mmol/L (22-29); Chloride 97 mmol/L (98-107); Creatinine Clr Calc Pharmacy 73.9201; Globulin 3.3 g/dL (1.3-4.6); Glomerular Filtration Rate 42.2 mL/min (90-130); Osmolality Calculated 300 mOsm/kg (285-295); Sodium 131 mmol/L (136-145); Total Bilirubin 0.2 mg/dL (0.15-1.2); Total Protein 7.5 g/dL (6.6-8.7)
[2024-01-05 19:59] LABS: Glucose 585 mg/dL (65-115)
[2024-01-05] MEDS: cefTRIAXone 1,000 mg SDV 1000 MG IVP (20:04)
[2024-01-05 20:05] LABS: ABG PCO2 32.4 mmHg (35-45); ABG PH Result 7.41 (7.35-7.45); Alveolar-Arterial Oxygen Gradi 3.1 mmHg (5-10); Arterial Blood Gas Hematocrit 43.5 % (37-47); Base Excess ABG -3.3 mmol/L (-2.0-2.0); Blood Gas Allen Test Pos; Blood Gas Operator Identificat ED; Blood Gas Sample Site Radial, right; Blood Gas Sample Type Arterial; Carboxyhemoglobin 0.7 %THgb (0.4-20.1); HCO3 ABG 20.4 mmol/L (22-26); HGB O2 Sat 95.3 % (95-100); Ionized Calcium Level - ABG 1.2 mmol/L (1.1-1.4); Methemoglobin 1.1 % (0.4-1.5); Oxygen Device ROOM AIR; Oxygen Saturation ABG 97.1; PO2 ABG 85.1 mmHg (80.0-100.0); PO2 FiO2 Ratio Arterial Blood 405; Total Hemoglobin 14.2 g/dL (12-16)
[2024-01-05 20:26] VITALS: BP 104/65; PULSE 68; RESP 18; O2SAT 93
[2024-01-05 20:26] LABS: Glucose Point of Care 414 mg/dL (70-110)
[2024-01-05 21:07] LABS: Glucose Point of Care 404 mg/dL (70-110)
[2024-01-05 21:17] VITALS: BP 110/89; PULSE 72; RESP 18; O2SAT 95
[2024-01-05 22:10] VITALS: PULSE 69; RESP 18; O2SAT 93
[2024-01-05 22:10] LABS: Glucose Point of Care 291 mg/dL (70-110)
[2024-01-05 23:01] VITALS: BP 179/97; PULSE 70; RESP 18; O2SAT 93
== END 2024-01-05 23:00 | disposition home or self-care (01) ==
PROVIDERS: Emergency Provider Emergency Medicine; PCP Nurse Practitioner
DX: E11.65 Type 2 diabetes mellitus with hyperglycemia (principal); N39.0 Urinary tract infection, site not specified; E86.0 Dehydration; Z79.82 Long term (current) use of aspirin; Z79.85 Long-term (current) use of injectable non-insulin antidiabetic drugs; Z79.4 Long term (current) use of insulin; Z87.891 Personal history of nicotine dependence; E11.22 Type 2 diabetes mellitus with diabetic chronic kidney disease; I12.9 Hypertensive chronic kidney disease with stage 1 through stage 4 chronic kidney disease, or unspecified chronic kidney disease; N18.30 Chronic kidney disease, stage 3 unspecified; E78.5 Hyperlipidemia, unspecified
CPT/HCPCS: 36416; 36600; 80051; 80053; 81001; 82009; 82330; 82805; 82962; 85025; 96361; 96374; 96375; 99284; J0696; J1815; J7030

== ENCOUNTER → 2024-03-30 11:26 | Outpatient (BNVA) | payer MEDICAID, SELFPAY ==
[2024-01-15 10:41] VITALS: BP 179/97; BMI 45.0
== END ==
PROVIDERS: PCP Nurse Practitioner; Visit Provider Nurse Practitioner
DX: E03.8 Other specified hypothyroidism (principal); E11.22 Type 2 diabetes mellitus with diabetic chronic kidney disease; N18.32 Chronic kidney disease, stage 3b; Z79.4 Long term (current) use of insulin
CPT/HCPCS: 80053; 81000; 83036; 84443

== ENCOUNTER → 2024-07-08 16:03 | Outpatient (BNVA) | payer MEDICAID, SELFPAY ==
[2024-01-15 10:41] VITALS: BP 179/97; BMI 45.0
== END ==
PROVIDERS: PCP Nurse Practitioner; Visit Provider Nurse Practitioner
DX: E11.65 Type 2 diabetes mellitus with hyperglycemia (principal); E55.9 Vitamin D deficiency, unspecified; E03.8 Other specified hypothyroidism; Z79.4 Long term (current) use of insulin
CPT/HCPCS: 80053; 80061; 82043; 82306; 83036; 84443

== ENCOUNTER → 2024-08-19 13:12 | Outpatient (BNVA) | payer MEDICAID, SELFPAY ==
[2024-07-13 17:15] VITALS: BP 160/80; BMI 46.0
== END ==
PROVIDERS: PCP Nurse Practitioner; Visit Provider Nurse Practitioner Family
DX: L72.11 Pilar cyst (principal); D22.4 Melanocytic nevi of scalp and neck; L81.4 Other melanin hyperpigmentation; D48.5 Neoplasm of uncertain behavior of skin; L57.0 Actinic keratosis
CPT/HCPCS: 11104; 17000; 99203

== ENCOUNTER → 2024-08-31 14:44 | Outpatient (BNVA) | payer SELFPAY ==
[2024-07-13 17:15] VITALS: BP 160/80; BMI 46.0
== END ==
PROVIDERS: PCP Nurse Practitioner; Visit Provider Nurse Practitioner Family
DX: S50.862A Insect bite (nonvenomous) of left forearm, initial encounter (principal); X58.XXXA Exposure to other specified factors, initial encounter; L81.4 Other melanin hyperpigmentation; K13.0 Diseases of lips
CPT/HCPCS: 99213

== ENCOUNTER → 2024-09-15 12:55 | Outpatient (BNVA) | payer MEDICAID, SELFPAY ==
[2024-07-13 17:15] VITALS: BP 160/80; BMI 46.0
== END ==
PROVIDERS: PCP Nurse Practitioner; Visit Provider Dermatology
DX: D48.5 Neoplasm of uncertain behavior of skin (principal); R20.8 Other disturbances of skin sensation; R23.8 Other skin changes
CPT/HCPCS: 11423; 11424; 12032; 13121

== ENCOUNTER → 2024-09-22 15:48 | Outpatient (BNVA) | payer MEDICAID, SELFPAY ==
[2024-07-13 17:15] VITALS: BP 160/80; BMI 46.0
== END ==
PROVIDERS: PCP Nurse Practitioner; Visit Provider Nurse Practitioner
DX: E78.49 Other hyperlipidemia (principal); E11.65 Type 2 diabetes mellitus with hyperglycemia; Z79.4 Long term (current) use of insulin; E03.8 Other specified hypothyroidism; E55.9 Vitamin D deficiency, unspecified
CPT/HCPCS: 80053; 80061; 82043; 82306; 83036

== ENCOUNTER → 2024-09-29 15:10 | Outpatient (BNVA) | payer OTHER, SELFPAY ==
[2024-07-13 17:15] VITALS: BP 160/80; BMI 46.0
== END ==
PROVIDERS: PCP Nurse Practitioner; Visit Provider Nurse Practitioner
DX: Z79.899 Other long term (current) drug therapy (principal)
CPT/HCPCS: 80178

== ENCOUNTER → 2025-03-07 13:22 | Outpatient (BNVA) | payer MEDICAID, SELFPAY ==
[2024-07-13 17:15] VITALS: BP 160/80; BMI 46.0
== END ==
PROVIDERS: PCP Nurse Practitioner; Visit Provider Nurse Practitioner
DX: E55.9 Vitamin D deficiency, unspecified (principal); E11.65 Type 2 diabetes mellitus with hyperglycemia; Z79.4 Long term (current) use of insulin; N39.0 Urinary tract infection, site not specified
CPT/HCPCS: 80053; 80061; 81000; 82306; 83036; 84443; 85025; 87086